=== PATIENT | male | born 1960 | race Hispanic/Latino ===

== ENCOUNTER 2018-07-30 11:38 | Inpatient (IN) | payer MEDICAID ==
--- NOTE | 2018-07-30 11:46 | Emergency Department Report ---
HPI - General Time Seen by Provider: 07/30/18 11:39 - HPI HPI: 58-year-old male presents to the emergency department by EMS from reports with the complaint of altered mental status. This occurred after the patient received his morning medications. However, The patient has been getting his medications over the past few days. The patient has become less responsive and is having difficulty with ambulation and his sat remained in a wheelchair today. There is some questionable left-sided weakness. However the patient does have history of prethe patient is currently a poor historian secondary to his current condition. [facility] TIA and the facility says that they are unsure whether or not it is new weakness as he has only been there for a few days. The patient is currently a poor historian. I was able to obtain some information from the nurse at [facility]. The patient has only been at their facility since last night. Apparently, the patient was standing in line for medication when he started coming altered, complaining of dizziness, and had difficulty standing. He has a past medical history listed of previous TIA, chronic DVT on Lovenox, hypertension and [id number]-[id number]-tacemcxmp diabetic. She says that he became altered around 10 AM. ED Past Medical Hx - Medications Home Medications: Home Medications Medication Instructions Recorded Confirmed Last Taken Type Aspirin [Adult Aspirin] 81 mg PO QDAY 07/30/18 07/30/18 Unknown History Docusate Sodium [Colace] 100 mg PO BID PRN 07/30/18 07/30/18 Unknown History Enoxaparin [Lovenox] 40 mg SUB-Q QDAY 07/30/18 07/30/18 Unknown History FLUoxetine HCL [Prozac] 10 mg PO QAM 07/30/18 07/30/18 Unknown History Gemfibrozil [Lopid] 600 mg PO QAM&QHS 07/30/18 07/30/18 Unknown History Insulin Aspart [Novolog] 0 unit SUB-Q PRN 07/30/18 07/30/18 Unknown History Metformin HCl [Glucophage] 1,000 mg PO BID 07/30/18 07/30/18 Unknown History OLANZapine [Zyprexa] 10 mg PO HS 07/30/18 07/30/18 Unknown History RX: Trazodone HCl 150 mg PO HS 07/30/18 07/30/18 Unknown History glipiZIDE [Glipizide] 5 mg PO QAM 07/30/18 07/30/18 Unknown History ED Review of Systems ROS: Stated complaint: ALTERED MENTAL STATUS Other details as noted in HPI Comment: Unobtainable due to pts medical conditions Physical Exam - Physical Exam Physical Exam: GENERAL: The patient is well-developed well-nourished. HEENT: Normocephalic. Atraumatic. Patient has moist mucous membranes. EYES: Extraocular motions are intact. Pupils are equal and reactive to light bilaterally. NECK: Supple. Trachea is midline. CHEST/LUNGS: Clear to auscultation. There is no respiratory distress noted. HEART/CARDIOVASCULAR: Regular. There is no tachycardia. There is no obvious murmur. ABDOMEN: Abdomen is soft, nontender. Patient has normal bowel sounds. There is no abdominal distention. SKIN: Skin is warm and dry. NEURO: Patient is sleepy but is arousable. Patient follows commands. Withdraws to painful stimuli. No facial asymmetry. There is some left-sided weakness with drift of the left upper and lower extremities. Patient has some confusion. He appears to have some mild ataxia of the left upper extremity. MUSCULOSKELETAL: There is no tenderness or deformity. There is no evidence of acute injury. ED Course - Consultations Consultation #1: I spoke with the telemedicine neurologist insulation worker interior surface, Dr. Acosta, who saw the patient via geothermal operations manager and recommends stat CT angiography of the head and neck but no TPA at this time. 07/30/18 12:36 07/30/18 13:[address] Gutierrez, in the place of Dr. Acosta, once the CT angiography of the head and neck were completed and he took a look at the imaging and did not see any obvious signs of any contusions, stenosis or thrombus. He recommends admission for further stroke workup. ED Medical Decision Making - Lab Data Result diagrams: 07/30/18 11:45 07/30/18 11:45 - EKG Data -: EKG Interpreted by Me EKG shows normal: sinus rhythm, axis, intervals, QRS complexes, ST-T waves Rate: normal - EKG Data When compared to previous EKG there are: previous EKG unavailable Interpretation: normal EKG - Radiology Data Radiology results: report reviewed, image reviewed interpreted by me: Chest x-ray does not show any pneumothorax, pleural effusion, pneumonia or obvious focal consolidation. Abdominal x-ray shows nonspecific nonobstructive bowel gas. CT HEAD WITHOUT CONTRAST: HISTORY: Stroke symptoms. TECHNIQUE: Sequential 2.5mm CT images. COMPARISON: none. FINDINGS: Cerebral Parenchyma: Within normal limits. Cerebellum: Within normal limits. Brainstem: Within normal limits. Ventricles: Normal. Sella: Normal. Extra-axial spaces: Normal. Basal Cisterns: Normal. Intracranial Hemorrhage: None. Midline Shift: None. Calvarium: Normal. Sinuses: Normal. Mastoid Air Cells: Normal. Visualized Orbits: Normal. IMPRESSION: Cranial CT scan within normal limits. EXAM: CT ANGIO HEAD HISTORY: CVA TECHNIQUE: CTA of the head was performed after the administration of intravenous contrast. Coronal and sagittal reconstructions were included. MIPS were included. PRIORS: None. FINDINGS: No evidence of acute intracranial hemorrhage, ischemic infarct, mass, mass effect or midline shift. Mucosal thickening of the maxillary sinuses is likely congestive or inflammatory. The calvarium is intact. The orbits are intact. The mastoid air cells are clear. No evidence of intracranial aneurysm, stenosis, occlusion or dissection. The [place] anatomy is normal. IMPRESSION: Normal CTA of the head. EXAM: CT ANGIO NECK HISTORY: CVA TECHNIQUE: CTA of the neck was performed. Coronal and sagittal reconstructions were included. MIPS were also included. PRIORS: None. FINDINGS: Estimates of vessel stenosis were made using the diameter of the area of stenosis to the ratio of the diameter of the normal caliber vessel. No evidence of cervical vascular aneurysm, dissection, or occlusion. Vessel origins are normal. There is mild calcified atherosclerotic plaque in the proximal aspects of the internal carotid arteries. There is approximately 50 percent stenosis of the proximal aspect of t he right internal carotid artery. No stenosis of the left internal carotid artery is noted. The common carotid, external carotid and vertebral arteries are widely patent. The internal jugular veins are patent. Multilevel degenerative changes of the cervical spine are seen. Prior cervical spine fusion is noted. IMPRESSION: 1. No evidence of cervical vascular aneurysm, dissection or occlusion. 2. Approximately 50 percent stenosis of the proximal aspect of the right internal carotid artery. Calcified atherosclerotic plaque at the proximal left internal carotid artery without vessel stenosis. - Medical Decision Making Patient presents from his psychiatric facility with the complaint of some altered mental status, dizziness and some left-sided weakness. Patient was an NIH stroke scale of 6. There is no obvious last known well time that allegedly the change in mental status occurred around [address] scan of the head without contrast did not show any bleed, shift, mass, ischemia or any other acute process. The telemedicine neurologist was contacted who did not feel that the patient should receive TPA at this time as the patient is currently getting anticoagulation but does recommend CT angiography of the head and neck to be done. CT angiography did not show any signs of any occlusion, thrombus, stenosis or any other acute process. Vital signs stable throughout his ED course. Labs are mostly unremarkable and do not show any etiology of his symptoms. Patient did not have any response to the Narcan given. Patient will be admitted to the hospital for further evaluation and has been accepted for admission by the hospitalist, Dr. Becker. - Differential Diagnosis CVA, TIA, hyperammonemia, psychosis Critical Care Time: Yes Critical care time in (mins) excluding proc time.: 35 Critical care attestation.: If time is entered above; I have spent that time in minutes in the direct care of this critically ill patient, excluding procedure time. Critical care time was spent on this patient during his initial evaluation, multiple re- evaluations, ordering and interpretation of labs and imaging, discussion with the hospitalist and neurologist. Critical Care Time: 35 minutes ED Disposition Clinical Impression: Encephalopathy CVA (cerebral vascular accident) Qualifiers: Precerebral and cerebral artery: unspecified cerebral artery Disposition: OP ADMIT IP TO THIS HOSP Is pt being admited?: Yes Condition: Serious Time of Disposition: 18:40 - Assessment Assessment Interval: Baseline - Level of Consciousness 1a. Level of Consciousness: arousable/minor stimuli - LOC Questions 1b. LOC Questions: answers 1 question correctly - LOC Command 1c. LOC Commands: performs 1 task correctly - Best Gaze 2. Best Gaze: normal - Visual 3. Visual: no visual loss - Facial Palsy 4. Facial Palsy: normal symmetrical movement - Motor Arm 5b. Motor Arm Right: no drift 5a. Motor Arm Left: drift - Motor Leg 6b. Motor Leg Right: no drift 6a. Motor Leg Left: drift - Limb Ataxia 7. Limb Ataxia: present 1 limb - Sensory 8. Sensory: normal - Best Language 9. Best Language: no aphasia - Dysarthria 10. Dysarthria: normal - Extinction and Inattention 11. Extinction/Inattention: no abnormality - Scoring Total Score: 6 Stroke Severity: Moderate Stroke
[2018-07-30] MEDS ORDERED: NARCAN 0.4 MG/1 ML IV ONE (11:51)
[2018-07-30 11:58] LABS: Basophils # (Auto) 0.1 K/mm3 (0.0-0.1); Basophils % (Auto) 1.2 % (0.0-1.8); Eosinophils # (Auto) 0.4 K/mm3 (0.0-0.4); Eosinophils % (Auto) 5.8 % (0.0-4.3); Hemoglobin 14.2 gm/dl (11.8-15.2); Lymphocytes # (Auto) 1.9 K/mm3 (1.2-5.4); Lymphocytes % (Auto) 29.4 % (13.4-35.0); Mean Corpuscular HGB Conc 36 % (32-34); Mean Corpuscular Volume 91 fl (84-94); Monocytes # (Auto) 0.7 K/mm3 (0.0-0.8); Monocytes % (Auto) 10.2 % (0.0-7.3); Platelet Count 266 K/mm3 (140-440); Red Blood Count 4.38 M/mm3 (3.65-5.03); Red Cell Distribution Width 14.4 % (13.2-15.2)
[2018-07-30 12:11] LABS: INR 0.95 (0.87-1.13)
[2018-07-30 12:12] LABS: Partial Thromboplastin Time 42.5 Sec. (24.2-36.6)
[2018-07-30 12:23] LABS: Alanine Aminotransferase 11 units/L (7-56); Albumin 4.8 g/dL (3.9-5); BUN/Creatinine Ratio 21; Blood Urea Nitrogen 17 mg/dL (9-20); Calcium 9.8 mg/dL (8.4-10.2); Hemolysis Index 5
--- NOTE | 2018-07-30 13:14 | XRay Report ---
ABDOMINAL SERIES: History: Abdominal pain. Supine and upright views of the abdomen and frontal view of the chest are submitted. There is gas mixed with moderate stool throughout the colon. There are no dilated loops of bowel or air-fluid levels. There is no free intraperitoneal gas. The lungs are clear. IMPRESSION: Fecal retention.
--- NOTE | 2018-07-30 13:17 | Cat Scan Report ---
CT HEAD WITHOUT CONTRAST: HISTORY: Stroke symptoms. TECHNIQUE: Sequential 2.5mm CT images. COMPARISON: none. FINDINGS: Cerebral Parenchyma: Within normal limits. Cerebellum: Within normal limits. Brainstem: Within normal limits. Ventricles: Normal. Sella: Normal. Extra-axial spaces: Normal. Basal Cisterns: Normal. Intracranial Hemorrhage: None. Midline Shift: None. Calvarium: Normal. Sinuses: Normal. Mastoid Air Cells: Normal. Visualized Orbits: Normal. IMPRESSION: Cranial CT scan within normal limits. These findings were discussed with Dr. Rutherford in the emergency department at 1208 hrs.
[2018-07-30 14:12] LABS: Bilirubin,Urine NEG (Negative); Blood,Urine NEG (Negative); Color,Urine Yellow (Yellow); Protein,Urine <15 mg/dL mg/dL (Negative); RBC,Urine < 1.0 /HPF (0.0-6.0); Urobilinogen,Urine < 2.0 mg/dL (<2.0); WBC,Urine < 1.0 /HPF (0.0-6.0)
--- NOTE | 2018-07-30 14:16 | Cat Scan Report ---
FINAL REPORT EXAM: CT ANGIO HEAD HISTORY: CVA TECHNIQUE: CTA of the head was performed after the administration of intravenous contrast. Coronal a nd sagittal reconstructions were included. MIPS were included. PRIORS: None. FINDINGS: No evidence of acute intracranial hemorrhage, ischemic infarct, mass, mass effect or midline shift. M ucosal thickening of the maxillary sinuses is likely congestive or inflammatory. The calvarium is int act. The orbits are intact. The mastoid air cells are clear. No evidence of intracranial aneurysm, stenosis, occlusion or dissection. The [place] anatomy is normal. IMPRESSION: Normal CTA of the head.
[2018-07-30] MEDS ORDERED: NARCAN 0.4 MG/1 ML ONE ×2 (14:19→14:20)
[2018-07-30 14:20] LABS: Amphetamine Screen,Urine PRESUMPTIVE NEGATIVE; Cannabinoid Screen,Urine PRESUMPTIVE NEGATIVE; Cocaine Screen,Urine PRESUMPTIVE NEGATIVE; Methadone Screen,Urine PRESUMPTIVE NEGATIVE; Opiate Screen,Urine PRESUMPTIVE NEGATIVE
--- NOTE | 2018-07-30 14:28 | Cat Scan Report ---
FINAL REPORT EXAM: CT ANGIO NECK HISTORY: CVA TECHNIQUE: CTA of the neck was performed. Coronal and sagittal reconstructions were included. MIPS w ere also included. PRIORS: None. FINDINGS: Estimates of vessel stenosis were made using the diameter of the area of stenosis to the ratio of the diameter of the normal caliber vessel. No evidence of cervical vascular aneurysm, dissection, or occlusion. Vessel origins are normal. There is mild calcified atherosclerotic plaque in the proximal aspects of the internal carotid arteries. T here is approximately 50 percent stenosis of the proximal aspect of the right internal carotid artery . No stenosis of the left internal carotid artery is noted. The common carotid, external carotid and vertebral arteries are widely patent. The internal jugular veins are patent. Multilevel degenerative changes of the cervical spine are seen. Prior cervical spine fusion is noted. IMPRESSION: 1. No evidence of cervical vascular aneurysm, dissection or occlusion. 2. Approximately 50 percent stenosis of the proximal aspect of the right internal carotid artery. Vasu cified atherosclerotic plaque at the proximal left internal carotid artery without vessel stenosis.
--- NOTE | 2018-07-30 14:35 | History and Physical Report ---
History of Present Illness Chief complaint: confused History of present illness: 58 YO Male inpatient at [facility] with HTN, DM, PTSD, Depression, ETOH Dependence, Cocaine Dependence, DVT on therapeutic anticoagulation, CVA presents to ED for evaluation. Pt is confused/lethargic and unable to provide history. Pt history taken from ED staff, and [facility] staff. As per staff, the patient has experienced increased confusion over the past 2 days. Pt was found to be less responsive today, unable to ambulate, with left sided hemiparesis. EMS notified, and upon arrival the patient was found to have a focal deficit. Code stroke called. Pt transported to [facility] for further care and evaluation. Pt seen and evaluated in ED and found to have evidence of CVA, and Encephalopathy. Teleneurology consulted in ED. Pt outside therapeutic window for TPA. Pt admitted to telemetry, and initiated on CVA protocol. No further history obtainable. Past History Past Medical History: diabetes, DVT, hypertension, stroke Past Surgical History: No surgical history, Other (reviewed) Social history: single. denies: smoking, alcohol abuse, prescription drug abuse Family history: no significant family history (reviewed) Medications and Allergies Allergies Allergy/AdvReac Type Severity Reaction Status Date / Time No Known Allergies Allergy Unverified 07/30/18 13:19 Review of Systems ROS unobtainable: due to mental status Exam - Constitutional Vitals: Temp Pulse Resp BP Pulse Ox 98.2 F 81 18 149/85 99 07/30/18 12:40 07/30/18 12:40 07/30/18 12:40 07/30/18 12:40 07/30/18 12:40 General appearance: Present: mild distress, cachectic, disheveled - EENT Eyes: Present: PERRL, miosis - Neck Neck: Present: supple, normal ROM - Respiratory Respiratory effort: normal Respiratory: bilateral: CTA - Cardiovascular Heart Sounds: Present: S1 & S2. Absent: rub, click - Extremities Extremities: pulses symmetrical, No edema Peripheral Pulses: within normal limits - Abdominal General gastrointestinal: Present: soft, non-tender, non-distended, normal bowel sounds Male genitourinary: Present: normal - Integumentary Integumentary: Present: clear, warm, dry - Musculoskeletal Musculoskeletal: generalized weakness - Psychiatric Psychiatric: no appropriate mood/affect, no intact judgment & insight, no memory intact - Neurologic Neurologic: CNII-XII intact, moves all extremities, no gait normal Results - Labs CBC & Chem 7: 07/30/18 11:45 07/30/18 11:45 Labs: Abnormal lab results 07/30/18 07/30/18 07/30/18 Range/Units 11:45 11:45 11:45 MCH 33 H (28-32) pg MCHC 36 H (32-34) % [place] % (Auto) 10.2 H (0.0-7.3) % Eos % (Auto) 5.8 H (0.0-4.3) % APTT 42.5 H (24.2-36.6) Sec. Glucose 136 H (75-100) mg/dL POC Glucose (70-105) 07/30/18 Range/Units 11:46 MCH (28-32) pg MCHC (32-34) % [place] % (Auto) (0.0-7.3) % Eos % (Auto) (0.0-4.3) % APTT (24.2-36.6) Sec. Glucose (75-100) mg/dL POC Glucose 157 H (70-105) Assessment and Plan - Patient Problems (1) CVA (cerebral vascular accident) Current Visit: Yes Status: Acute Qualifiers: Precerebral and cerebral artery: posterior cerebral artery Plan to address problem: Admit to telemetry, CT Head, MRI Brain, MRA Brain, Echo, Carotid Doppler, Echo, EEG, PT/OT/ Speech therapy, antiplatelet therapy, lipid panel, neuro checks (2) Encephalopathy Current Visit: Yes Status: Acute Plan to address problem: thyroid panel, neuro check, UDS, CT Head, (3) Diabetes Current Visit: Yes Status: Acute Plan to address problem: ADA diet, insulin, accu check (4) HTN (hypertension) Current Visit: Yes Status: Acute Qualifiers: Hypertension type: essential hypertension Qualified Code(s): I10 - Essential (primary) hypertension Plan to address problem: monitor bp q shift, continue medical management (5) DVT prophylaxis Current Visit: Yes Status: Acute Plan to address problem: SCD to BLE while in bed (6) PTSD (post-traumatic stress disorder) Current Visit: Yes Status: Acute Plan to address problem: Psychiatry consulted. (7) Depression Current Visit: Yes Status: Acute Plan to address problem: psychiatry consulted, (8) Substance abuse Current Visit: Yes Status: Acute Plan to address problem: thiamine, folic acid, multivitamin, ciwa protocol
[2018-07-30] MEDS ORDERED: SODIUM CHLORIDE FLUSH SYRINGE 10 ML IV PRN (14:39)
[2018-07-30] MEDS ORDERED: REGLAN PO PRN (14:39)
[2018-07-30] MEDS ORDERED: ZOFRAN IV PRN (14:39)
[2018-07-30] MEDS ORDERED: PROVENTIL IH PRN (14:39)
[2018-07-30] MEDS ORDERED: PHENERGAN PR PRN (14:39)
[2018-07-30] MEDS ORDERED: MILK OF MAGNESIA PO PRN (14:39)
[2018-07-30 14:42] LABS: Benzodiazepines Screen,Urine PRESUMPTIVE POSITIVE
[2018-07-30] MEDS ORDERED: DULCOLAX PR PRN (15:39)
[2018-07-30] MEDS ORDERED: TYLENOL ONE (16:43)
[2018-07-30] MEDS ORDERED: VITAMIN B-1 100 MG, FOLVITE 1 MG, INFUVITE 10 ML in NACL 0.9% 1000 ML 1,000 ML IV ONE (17:05)
[2018-07-30] MEDS: LOVENOX SUB-Q SCH (21:23)
--- NOTE | 2018-07-31 01:15 | Vascular Lab Report ---
FINAL REPORT EXAM: VL CAROTID DUPLEX BILAT HISTORY: stroke TECHNIQUE: Real-time carotid ultrasound with 2D kim scale color Doppler and spectral waveform a nalysis was performed. PRIORS: CT head/neck dated 07/30/2018. FINDINGS: FINDINGS: Real-time carotid ultrasound shows moderate right and mild left intimal thickening and calc ified plaque within the distal common and proximal internal carotid arteries. No significant stenosis is detected. The external carotid and vertebral arteries are patent bilaterally with appropriate di rection of flow. Right: Cm/sec Proximal Peak Syst Parth (CCA): 95 Proximal Peak Diast Parth (CCA): 12 Distal Peak Syst Parth (CCA): 83 Distal Peak Diast Parth (CCA): 12 Proximal Peak Syst Parth (ICA): 96 Proximal Peak Diast Parth (ICA): 30 Mid Peak Syst Parth (ICA): 80 Mid Peak Diast Parth (ICA): 27 Distal Peak Syst Parth (ICA): 101 Distal Peak Diast Parth (ICA): 37 Peak Syst Parth (ECA): 77 Peak Diast Parth (ECA): 6 Vertebral Peak Syst Parth: 49 Vertebral Peak Diast Parth: 10 Left: Cm/sec Proximal Peak Syst Parth (CCA): 105 Proximal Peak Diast Parth (CCA): 18 Distal Peak Syst Parth (CCA): 93 Distal Peak Diast Parth (CCA): 22 Proximal Peak Syst Parth (ICA): 89 Proximal Peak Diast Parth (ICA): 32 Mid Peak Syst Parth (ICA): 86 Mid Peak Diast Parth (ICA): 35 Distal Peak Syst Parth (ICA): 77 Distal Peak Diast Parth (ICA): 28 Peak Syst Parth (ECA): 79 Peak Diast Parth (ECA): 8 Vertebral Peak Syst Parth: 46 Vertebral Peak Diast Parth: 16 IMPRESSION: Moderate right and mild left calcified plaque within the distal common and proximal internal carotid arteries. No stenosis <50% present based on flow velocities.
[2018-07-31] MEDS: LOVENOX SUB-Q SCH ×2 (10:01→22:59)
--- NOTE | 2018-07-31 10:09 | Progress Note ---
Assessment and Plan Assessment and plan: Acute CVA. CT scan of the head is negative. Follow-up MRI/MRA brain, echocardiogram and carotid Dopplers. PT/OT evaluation. Acute encephalopathy. Neurology consultation pending. Etiology may be seco ndary to above. Diabetes mellitus type II. Continue Accu-Cheks and sliding scale as. Consistent carbohydrate diet. Hypertension. Continue antihypertensive medications. PTSD. Psychiatric consultation pending. Depression. As above. Substance abuse/cocaine dependence. History Interval history: No new issues overnight. Hospitalist Physical - Constitutional Vitals: Temp Pulse Resp BP Pulse Ox 97.6 F 64 22 128/77 95 07/31/18 09:56 07/31/18 09:56 07/31/18 09:56 07/31/18 09:56 07/31/18 09:56 General appearance: Present: no acute distress, cachectic, disheveled Results - Labs CBC & Chem 7: 07/30/18 11:45 07/30/18 11:45 Labs: Laboratory Last Values WBC 6.4 K/mm3 (4.5-11.0) 07/30/18 11:45 RBC 4.38 M/mm3 (3.65-5.03) 07/30/18 11:45 Hgb 14.2 gm/dl (11.8-15.2) 07/30/18 11:45 Hct 40.0 % (35.5-45.6) 07/30/18 11:45 MCV 91 fl (84-94) 07/30/18 11:45 MCH 33 pg (28-32) H 07/30/18 11:45 MCHC 36 % (32-34) H 07/30/18 11:45 RDW 14.4 % (13.2-15.2) 07/30/18 11:45 Plt Count 266 K/mm3 (140-440) 07/30/18 11:45 Lymph % (Auto) 29.4 % (13.4-35.0) 07/30/18 11:45 [place] % (Auto) 10.2 % (0.0-7.3) H 07/30/18 11:45 Eos % (Auto) 5.8 % (0.0-4.3) H 07/30/18 11:45 Baso % (Auto) 1.2 % (0.0-1.8) 07/30/18 11:45 Lymph # 1.9 K/mm3 (1.2-5.4) 07/30/18 11:45 [place] # 0.7 K/mm3 (0.0-0.8) 07/30/18 11:45 Eos # 0.4 K/mm3 (0.0-0.4) 07/30/18 11:45 Baso # 0.1 K/mm3 (0.0-0.1) 07/30/18 11:45 Seg Neutrophils % 53.4 % (40.0-70.0) 07/30/18 11:45 Seg Neutrophils # 3.4 K/mm3 (1.8-7.7) 07/30/18 11:45 PT 13.1 Sec. (12.2-14.9) 07/30/18 11:45 INR 0.95 (0.87-1.13) 07/30/18 11:45 APTT 42.5 Sec. (24.2-36.6) H 07/30/18 11:45 Sodium 142 mmol/L (137-145) 07/30/18 11:45 Potassium 4.1 mmol/L (3.6-5.0) 07/30/18 11:45 Chloride 101.8 mmol/L (98-107) 07/30/18 11:45 Carbon Dioxide 25 mmol/L (22-30) 07/30/18 11:45 Anion Gap 19 mmol/L 07/30/18 11:45 BUN 17 mg/dL (9-20) 07/30/18 11:45 Creatinine 0.8 mg/dL (0.8-1.5) 07/30/18 11:45 Estimated GFR > 60 ml/min 07/30/18 11:45 BUN/Creatinine Ratio 21 % 07/30/18 11:45 Glucose 136 mg/dL (75-100) H 07/30/18 11:45 POC Glucose 87 (70-105) 07/31/18 05:27 Lactic Acid 1.60 mmol/L (0.7-2.0) 07/30/18 11:45 Calcium 9.8 mg/dL (8.4-10.2) 07/30/18 11:45 Total Bilirubin < 0.20 mg/dL (0.1-1.2) 07/30/18 11:45 AST 17 units/L (5-40) 07/30/18 11:45 ALT 11 units/L (7-56) 07/30/18 11:45 Alkaline Phosphatase 87 units/L (35-129) 07/30/18 11:45 Ammonia 33.0 umol/L (25-60) 07/30/18 11:45 Troponin T < 0.010 ng/mL (0.00-0.029) 07/30/18 11:45 Total Protein 7.8 g/dL (6.3-8.2) 07/30/18 11:45 Albumin 4.8 g/dL (3.9-5) 07/30/18 11:45 Albumin/Globulin Ratio 1.6 % 07/30/18 11:45 TSH 2.230 mlU/mL (0.270-4.200) 07/30/18 11:45 Urine Color Yellow (Yellow) 07/30/18 13:19 Urine Turbidity Clear (Clear) 07/30/18 13:19 Urine pH 6.0 (5.0-7.0) 07/30/18 13:19 Ur Specific [place] 1.006 (1.003-1.030) 07/30/18 13:19 Urine Protein <15 mg/dl mg/dL (Negative) 07/30/18 13:19 Urine Glucose (UA) 50 mg/dL (Negative) 07/30/18 13:19 Urine Ketones Neg mg/dL (Negative) 07/30/18 13:19 Urine Blood Neg (Negative) 07/30/18 13:19 Urine Nitrite Neg (Negative) 07/30/18 13:19 Urine Bilirubin Neg (Negative) 07/30/18 13:19 Urine Urobilinogen < 2.0 mg/dL (<2.0) 07/30/18 13:19 Ur Leukocyte Esterase Neg (Negative) 07/30/18 13:19 Urine WBC (Auto) < 1.0 /HPF (0.0-6.0) 07/30/18 13:19 Urine RBC (Auto) < 1.0 /HPF (0.0-6.0) 07/30/18 13:19 U Epithel Cells (Auto) < 1.0 /HPF (0-13.0) 07/30/18 13:19 Urine Opiates Screen Presumptive negative 07/30/18 13:19 Urine Methadone Screen Presumptive negative 07/30/18 13:19 Ur Barbiturates Screen Presumptive negative 07/30/18 13:19 Ur Phencyclidine Scrn Presumptive negative 07/30/18 13:19 Ur Amphetamines Screen Presumptive negative 07/30/18 13:19 U Benzodiazepines Scrn Presumptive positive 07/30/18 13:19 Urine Cocaine Screen Presumptive negative 07/30/18 13:19 U Marijuana (THC) Screen Presumptive negative 07/30/18 13:19 Drugs of Abuse Note Disclamer 07/30/18 13:19 Plasma/Serum Alcohol < 0.01 % (0-0.07) 07/30/18 11:45 Blood Type O POSITIVE 07/30/18 12:11 Antibody Screen Negative 07/30/18 12:11
[2018-07-31] MEDS: ATIVAN IV PRN ×2 (12:39→20:04)
--- NOTE | 2018-07-31 13:26 | Magnetic Resonance Report ---
MRI BRAIN WITHOUT CONTRAST: 07/31/18 CLINICAL: Stroke. TECHNIQUE: Axial diffusion, T1, T2, gradient echo T2*, coronal and axial FLAIR and sagittal T1 sequences on a 1.5 Diamond magnet. FINDINGS: The ventricles and sulci are slightly large for age. No restricted diffusion. No mass or mass effect. No hemorrhage, edema or extra-axial collection. No chronic microbleeds on the gradient echo sequence. Normal pituitary and optic chiasm. The brainstem and cerebellum are normal. Intact vascular flow voids. Normal sinuses. The orbits, and soft tissues are normal. Normal calvarium and skull base. IMPRESSION: 1. No evidence of acute/subacute infarct or hemorrhage. 2. Mild global cortical atrophy.
--- NOTE | 2018-07-31 13:27 | Magnetic Resonance Report ---
MRA HEAD WITHOUT CONTRAST: 07/30/18 14:39:00 CLINICAL: Stroke. TECHNIQUE: Axial 3-D [id number] MR angiography of the [place] with review of axial source images. FINDINGS: Intact [place] with no aneurysm, stenosis or occlusion. Symmetric blood flow in the anterior, middle and posterior cerebral arteries. Normal basilar and vertebral arteries. IMPRESSION: Normal study.
--- NOTE | 2018-07-31 14:56 | Consultation ---
History of Present Illness - Reason for Consult Consult date: 07/31/18 Reason for consult: Initial Psychiatric Evaluation - Chief Complaint Chief complaint: " I don't know" - History of Present Psychiatric Illness Patient 58-year-old male that presents to the emergency department by EMS from reports with the complaint of altered mental status. This occurred after the patient received his morning medications. However, The patient has been getting his medications over the past few days. Psychiatry was consulted for a PPHx of MDD and PTSD. Today patient is lethargic/sedated during the assessment. He is unable to respond to provider's questions. Patient immediately falls asleep after a questioned has been asked. Thought content is impoverished. Per sitter patient received Ativan PRN before MRI. Prior to receiving Ativan patient was more alert and oriented. Current Psychiatric Medications: Unable to assess. Past Psychiatric History: Unable to assess. Past Psychiatric Medication Trials: Unable to assess. Trauma/Abuse History: Unable to assess. Drug/Alcohol Abuse History: Unable to assess. Social History: Unable to assess. Family History of Psychiatric Illness/Substance Abuse: Unable to assess. Medications and Allergies Allergies Allergy/AdvReac Type Severity Reaction Status Date / Time Iodinated Contrast- Oral and Allergy Anaphylaxis Verified 07/31/18 04:19 IV Dye Penicillins Allergy Unknown Verified 07/31/18 04:19 tramadol Allergy Itching Verified 07/31/18 04:19 Home Medications Medication Instructions Recorded Confirmed Last Taken Type Aspirin [Adult Aspirin] 81 mg PO QDAY 07/30/18 07/30/18 Unknown History Docusate Sodium [Colace] 100 mg PO BID PRN 07/30/18 07/30/18 Unknown History Enoxaparin [Lovenox] 40 mg SUB-Q QDAY 07/30/18 07/30/18 Unknown History FLUoxetine HCL [Prozac] 10 mg PO QAM 07/30/18 07/30/18 Unknown History Gemfibrozil [Lopid] 600 mg PO QAM&QHS 07/30/18 07/30/18 Unknown History Insulin Aspart [Novolog] 0 unit SUB-Q PRN 07/30/18 07/30/18 Unknown History Metformin HCl [Glucophage] 1,000 mg PO BID 07/30/18 07/30/18 Unknown History OLANZapine [Zyprexa] 10 mg PO HS 07/30/18 07/30/18 Unknown History Trazodone HCl 150 mg PO HS 07/30/18 07/30/18 Unknown History glipiZIDE [Glipizide] 5 mg PO QAM 07/30/18 07/30/18 Unknown History Active Meds: Active Medications Acetaminophen (Tylenol) 650 mg PO Q4H PRN PRN Reason: Pain, Mild (1-3) Albuterol (Proventil) 2.5 mg IH Q3HRT PRN PRN Reason: Shortness Of Breath Atorvastatin Calcium (Lipitor) 40 mg PO QHS [facility] Last Admin: 07/30/18 21:23 Dose: Not Given Documented by: Bisacodyl (Dulcolax) 10 mg NM QDAY PRN PRN Reason: Constipation Enoxaparin Sodium (Lovenox) 70 mg 1 mg/kg (70 mg) SUB-Q Q12HR [facility] Last Admin: 07/31/18 10:01 Dose: 70 mg Documented by: Lorazepam (Ativan) 2 mg IV Q1HR PRN PRN Reason: CIWA-Ar 8-15 Last Admin: 07/31/18 12:39 Dose: 2 mg Documented by: Magnesium Hydroxide (Milk Of Magnesia) 30 ml PO Q4H PRN PRN Reason: Constipation Metoclopramide HCl (Reglan) 10 mg PO Q6H PRN PRN Reason: Nausea And Vomiting Ondansetron HCl (Zofran) 4 mg IV Q8H PRN PRN Reason: Nausea And Vomiting Promethazine HCl (Phenergan) 25 mg NM Q6H PRN PRN Reason: Nausea And Vomiting Sodium Chloride (Sodium Chloride Flush Syringe 10 Ml) 10 ml IV PRN PRN PRN Reason: LINE FLUSH Mental Status Exam - Vital signs Last Vital Signs Temp 97.6 F 07/31/18 09:56 Pulse 75 07/31/18 10:00 Resp 22 07/31/18 09:56 BP 128/77 07/31/18 09:56 Pulse Ox 95 07/31/18 09:56 - Exam Narrative exam: Mental Status Exam: Appearance: calm, cooperative Behavior: poor eye contact Speech: delayed; difficult to understand Mood: "I feel okay" Affect: constricted Thought Process: confused Thought Content: denies SI/HI's and AVH's Motor Activity: laying in bed; unsteady gait Cognition: lethargic/ sedated Insight: unable to assess. Judgment: unable to Assess. Results Result Diagrams: 07/30/18 11:45 07/30/18 11:45 All other labs normal. Assessment and Plan Assessment and plan: Impression: PPHx of PTSD and MDD. Today patient is lethargic/sedated. Provider unable to fully assess due to patient's mental status. Appears somewhat confused. Recommendation/Plan: 1. Will reevaluate in 24 hours. 2. Gain collateral to determine proper disposition. Recommend Delirium precautions below: 1. Frequently reorient patient and involve him/her in their care (simple explanations of procedures, tests, medications). 2. Lights on and shades open during daytime hours. 3. Write date and goals of care in a visible place. 4. Try to avoid unnecessary interruptions to sleep during nighttime hours. 5. Obtain glasses, hearing aids from home if patient uses these at baseline. 6. Avoid medications that may exacerbate delirium (especially narcotics, benzodiazepines, barbiturates, ambien, lunesta, and medications with excessive anticholinergic properties). Disposition: Will restart medication for psychiatry once collateral has been gained and patient is less confused/more oriented. Will staff with Dr. Libia Dove.
--- NOTE | 2018-07-31 16:41 | Consultation ---
History of Present Illness Consult date: 07/31/18 Requesting physician: RUBIN WILLIS Reason for Consult: altered mental status Chief complaint: altered mental status, weakness and paresthesias and pain left arm/hand History of present illness: This 58-year-old right-handed white male is a somewhat poor historian but states it he noted 3 days ago numbness and pain in the left index, middle and ring fingers and associated weakness of the left arm and slowing of speech but no problems with his leg. He states he takes 81 mg aspirin but no blood pressure medications. CT angio of neck just showed 50% stenosis proximally in the right internal carotid artery but normal on the left, CT angiogram head was normal. MRI of the head is negative on diffusion and GRE but shows some periventricular microvascular disease peripherally and a thin layer of microvascular disease periventricularly on FLAIR and some mild cerebral atrophy. MRA of the head is normal. He states his blood pressures at home are in the 120s over 80s. 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 PTSD.) Past Surgical History: Other (reviewed. 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 denies: alcohol abuse (heavy alcohol in the past but stopped 4 years ago), prescription drug abuse, IV drug use (cocaine in the 1970s as well as acid and marijuana never IVDA.) Family history: no significant family history (reviewed), hypertension (sister and paternal grandparents), other (negative for epilepsy). denies: stroke Medications and Allergies Allergies Allergy/AdvReac Type Severity Reaction Status Date / Time Iodinated Contrast- Oral and Allergy Anaphylaxis Verified 07/31/18 04:19 IV Dye Penicillins Allergy Unknown Verified 07/31/18 04:19 tramadol Allergy Itching Verified 07/31/18 04:19 Home Medications Medication Instructions Recorded Confirmed Last Taken Type Aspirin [Adult Aspirin] 81 mg PO QDAY 07/30/18 07/30/18 Unknown History Docusate Sodium [Colace] 100 mg PO BID PRN 07/30/18 07/30/18 Unknown History Enoxaparin [Lovenox] 40 mg SUB-Q QDAY 07/30/18 07/30/18 Unknown History FLUoxetine HCL [Prozac] 10 mg PO QAM 07/30/18 07/30/18 Unknown History Gemfibrozil [Lopid] 600 mg PO QAM&QHS 07/30/18 07/30/18 Unknown History Insulin Aspart [Novolog] 0 unit SUB-Q PRN 07/30/18 07/30/18 Unknown History Metformin HCl [Glucophage] 1,000 mg PO BID 07/30/18 07/30/18 Unknown History OLANZapine [Zyprexa] 10 mg PO HS 07/30/18 07/30/18 Unknown History Trazodone HCl 150 mg PO HS 07/30/18 07/30/18 Unknown History glipiZIDE [Glipizide] 5 mg PO QAM 07/30/18 07/30/18 Unknown History Active Meds: Active Medications Acetaminophen (Tylenol) 650 mg PO Q4H PRN PRN Reason: Pain, Mild (1-3) Albuterol (Proventil) 2.5 mg IH Q3HRT PRN PRN Reason: Shortness Of Breath Atorvastatin Calcium (Lipitor) 40 mg PO QHS [facility] Last Admin: 07/30/18 21:23 Dose: Not Given Documented by: Bisacodyl (Dulcolax) 10 mg AL QDAY PRN PRN Reason: Constipation Enoxaparin Sodium (Lovenox) 70 mg 1 mg/kg (70 mg) SUB-Q Q12HR [facility] Last Admin: 07/31/18 10:01 Dose: 70 mg Documented by: Lorazepam (Ativan) 2 mg IV Q1HR PRN PRN Reason: CIWA-Ar 8-15 Last Admin: 07/31/18 12:39 Dose: 2 mg Documented by: Magnesium Hydroxide (Milk Of Magnesia) 30 ml PO Q4H PRN PRN Reason: Constipation Metoclopramide HCl (Reglan) 10 mg PO Q6H PRN PRN Reason: Nausea And Vomiting Ondansetron HCl (Zofran) 4 mg IV Q8H PRN PRN Reason: Nausea And Vomiting Promethazine HCl (Phenergan) 25 mg AL Q6H PRN PRN Reason: Nausea And Vomiting Sodium Chloride (Sodium Chloride Flush Syringe 10 Ml) 10 ml IV PRN PRN PRN Reason: LINE FLUSH Review of Systems All systems: negative (headache at temples with nausea and photophonophobia for 5-6 years, has had a headache for 3-4 days now, usually 2 times a week, takes Tylenol since Aleve and ibuprofen do not work. Some lightheadedness at times with bending over and wobbly gait. No snoring or pauses or, cannot drive due to cataracts. Sometimes difficulty falling asleep. He states he has restless legs and that he hits his sometimes in his sleep. Some trouble with short- term memory for a few years. Fingertips bilaterally have been numb for 2 weeks but the first episode was a month or 2 ago.) Physical Examination - Vital Signs Vital Signs: Vital Signs Resp 13 07/30/18 11:45 - Physical Exam Narrative exam: General Appearance: well developed well nourished (per BMI) early 60s white male white male in [facility]. HEENT: atraumatic, normocephalic; no bruits, 2+ Emile without soreness or induration or enlargement, sclerae nonicteric. Oropharynx pink and moist. No TMJ click or sinus soreness to pressure or percussion but has some left TMJ soreness to palpation and some soreness of the left supraorbital nerve area. Neck: supple, no bruits. Heart: no murmur or extra sounds. Extremities: no clubbing, cyanosis or edema but scabbed skin lesions bilaterally in the lower legs. 2+ dorsalis pedis pulses bilaterally. Neurologic Exam: Mental Status: Awake, alert, oriented X to June, speech is clear, names pen and tip of pen, and abstracts well. Names President but not Silk Trimmer, serial 7's with several errors and gives 5+7 = T has some right- left confusion, gets 0 of 3 objects at 3 minutes though he gets one item after first letter prompt, spells WORLD backwards DLOROW (putting in an extra letter). Cranial Nerves: lópez full, no papilledema, SVPs present, PERRLA, EOMs full without nystagmus or diplopia, facial sensation decreased to pinprick on the right V1-V3 but decreased light touch in the left V1 and V3 territories, no facial weakness, Jasmine is to the right but AC>BC X 2, palate rises symmetrically to phonation and gags are positive, shoulder shrug is 5 X 2 by painful bilaterally, tongue protrudes midline. Cerebellar: finger to nose and heel to patricio OR tandem are normal. Sensory: intact to light touch but it elicits tingling in the left arm and leg, pinprick decreased on the right side, decreased vibrations left side. Double simultaneous stimulation is intact. Special Tests: shock locally at right>>left carpal tunnels. Motor Exam Upper Extremities: moderate left drift without pronation but has asterixis-like jerks trying to hold his arms above the bed though without any of the usual "flap" at the wrists when held in dorsiflexion, Corey slower on the left. Ad[employer] Clerks Supervisor are 5 right and 4- left, tone is normal. No atrophy or fasciculations are noted visually. Motor Exam Lower Extremities: no leg lag, iliopsoas and quadriceps and anterior tibials and gastrocnemius are 5 X 2. Corey intact. Tone is normal. No atrophy or fasciculations are noted visually. Reflexes: Palmomental and jaw jerk are negative but snout is slightly positive. Triceps are trace, biceps are trace right and 1 left, and brachioradialis are trace bilaterally. Terrence's is negative bilaterally. Knee jerks are trace right and 1+ left and ankle jerks are 0 bilaterally even with reinforcement and without clonus. Toes are downgoing bilaterally to Babinski testing. - Assessment Assessment Interval: Baseline - Level of Consciousness 1a. Level of Consciousness: arousable/minor stimuli - LOC Questions 1b. LOC Questions: answers 1 question correctly - LOC Command 1c. LOC Commands: performs 1 task correctly - Best Gaze 2. Best Gaze: normal - Visual 3. Visual: no visual loss - Facial Palsy 4. Facial Palsy: normal symmetrical movement - Motor Arm 5b. Motor Arm Right: no drift - Motor Leg 6a. Motor Leg Left: drift - Limb Ataxia 7. Limb Ataxia: present 1 limb - Sensory 8. Sensory: normal - Best Language 9. Best Language: no aphasia - Dysarthria 10. Dysarthria: normal - Extinction and Inattention 11. Extinction/Inattention: no abnormality Results - Laboratory Findings CBC and BMP: 07/30/18 11:45 07/30/18 11:45 Abnormal Lab Findings: Abnormal Labs 07/30/18 07/30/18 07/30/18 11:45 11:45 11:45 MCH 33 H MCHC 36 H [place] % (Auto) 10.2 H Eos % (Auto) 5.8 H APTT 42.5 H Glucose 136 H POC Glucose 07/30/18 11:46 MCH MCHC [place] % (Auto) Eos % (Auto) APTT Glucose POC Glucose 157 H Assessment and Plan Impression: 1. Lacunar strokes 2. Dysphagia 3. Dysarthria 4. Memory loss 5. Restless legs syndrome (RLS) 6. REM behavioral sleep disorder (RBSD) 7. Common migraine, intractable 8. Orthostatic dizziness by history Plan: 1. Suggest teaching calf tensing maneuvers for orthostasis via PT. 2. Melatonin for RBSD as outpatient, starting 3 mg ONE HOUR before sleep and building to as much as 15 mg. Can sometimes worsen RLS. 3. Checking iron panel for RLS, aim to get ferritin to 60 or above. 4. Unlikely to be GBS with domingo minimal weakness and sensory change and dysarthria. 5. Formal speech/swallow evaluation to be done (failed swallow screen). 6. Will order repeat brain MRI for Sunday, since could have brainstem stroke that would be in the 6% false negative MRI category on initial scan. If negative, may need spine MRIs. 60 min spent including extensive history and review of hundreds of MRI images. Thank you for and interesting consultation on this unfortunate early 60s man. Will sign off, call for any unusual second MRI or lab results.
[2018-07-31 18:21] LABS: Chol/HDL Ratio 6.45 %
--- NOTE | 2018-07-31 19:52 | Electroencephalogram Report ---
Electroencephalogram EEG Date of exam: 07/31/18 Description: EEG preliminary findings: This 21 minute EEG using 19 channels including one EKG channel shows 7-8 Hz alpha activity in the posterior leads and some anterior beta activity. With brief sleep and drowsiness there are sleep spindles and K complexes. No epileptiform activity was seen. Interpretation: EEG preliminary reading: Mildly abnormal waking and brief sleep EEG due to mild slowing of the background. This EEG does not exclude epilepsy of partial onset. Up to 4 EEGs over several months may be needed to capture interictal epileptiform activity.
[2018-07-31] MEDS: TYLENOL PO PRN (20:02)
[2018-08-01] MEDS ORDERED: HALDOL IV PRN (02:32)
[2018-08-01] MEDS ORDERED: NACL 0.9% 1000 ML 1,000 ML IV ONE (02:35)
[2018-08-01] MEDS: TYLENOL PO PRN (05:23)
[2018-08-01] MEDS: 1: FOLVITE 1 MG, INFUVITE 10 ML, VITAMIN B-1 100 MG in NACL 0.9% 1000 ML 988.8 ML 2: NA IV SCH ×2 (05:28→21:05)
--- NOTE | 2018-08-01 09:48 | Fluoroscopy Report ---
MODIFIED BARIUM SWALLOW History: dysphagia. Findings: Video radiography was provided by the radiologist for speech therapy to assess the swallowing mechanism. 1 fluoroscopic image was captured. Impression: Successful modified barium swallow.
--- NOTE | 2018-08-01 11:41 | Progress Note ---
Assessment and Plan Assessment and plan: Acute lacunar CVA. CT scan of the head is negative. CT angio of neck just showed 50% stenosis proximally in the right internal carotid artery but normal on the left, CT angiogram head was normal. MRI of the head is negative on diffusion and GRE but shows some periventricular microvascular disease pe ripherally and a thin layer of microvascular disease periventricularly on FLAIR and some mild cerebral atrophy. MRA of the head is normal. PT/OT. Neurology following and recommends repeat brain MRI for Sunday, since could have brainstem stroke that would be in the 6% false negative MRI category on initial scan. If negative, may need spine MRIs. Acute encephalopathy. Neurology consultation pending. Etiology may be secondary to above. Oropharyngeal dysphagia. Speech therapy perform modified barium swallow that showed no signs of aspiration. Continue dysphagia/mechanical soft diet. Diabetes mellitus type II. Continue Accu-Cheks and sliding scale as. Consistent carbohydrate diet. Restless leg syndrome. Per neurology Common Migraine, intractable. Per Neurology. Hypertension. Continue antihypertensive medications. PTSD. Psychiatric consultation pending. Depression. As above. Substance abuse/cocaine dependence. History Interval history: No new issues overnight. Hospitalist Physical - Constitutional Vitals: Temp Pulse Resp BP Pulse Ox 97.8 F 66 18 120/74 95 08/01/18 08:44 08/01/18 08:44 08/01/18 08:44 08/01/18 08:44 08/01/18 08:44 General appearance: Present: no acute distress, cachectic, disheveled - EENT Eyes: Present: PERRL, EOM intact ENT: hearing intact, clear oral mucosa, dentition normal - Neck Neck: Present: supple, normal ROM - Respiratory Respiratory effort: normal Respiratory: bilateral: CTA - Cardiovascular Rhythm: regular Heart Sounds: Present: S1 & S2. Absent: gallop, rub - Extremities Extremities: no ischemia, No edema, Full ROM - Abdominal General gastrointestinal: soft, non-tender, non-distended, normal bowel sounds - Integumentary Integumentary: Present: clear, warm, dry - Neurologic Neurologic: CNII-XII intact, moves all extremities Results - Labs CBC & Chem 7: 07/30/18 11:45 07/30/18 11:45 Labs: Laboratory Last Values WBC 6.4 K/mm3 (4.5-11.0) 07/30/18 11:45 RBC 4.38 M/mm3 (3.65-5.03) 07/30/18 11:45 Hgb 14.2 gm/dl (11.8-15.2) 07/30/18 11:45 Hct 40.0 % (35.5-45.6) 07/30/18 11:45 MCV 91 fl (84-94) 07/30/18 11:45 MCH 33 pg (28-32) H 07/30/18 11:45 MCHC 36 % (32-34) H 07/30/18 11:45 RDW 14.4 % (13.2-15.2) 07/30/18 11:45 Plt Count 266 K/mm3 (140-440) 07/30/18 11:45 Lymph % (Auto) 29.4 % (13.4-35.0) 07/30/18 11:45 [place] % (Auto) 10.2 % (0.0-7.3) H 07/30/18 11:45 Eos % (Auto) 5.8 % (0.0-4.3) H 07/30/18 11:45 Baso % (Auto) 1.2 % (0.0-1.8) 07/30/18 11:45 Lymph # 1.9 K/mm3 (1.2-5.4) 07/30/18 11:45 [place] # 0.7 K/mm3 (0.0-0.8) 07/30/18 11:45 Eos # 0.4 K/mm3 (0.0-0.4) 07/30/18 11:45 Baso # 0.1 K/mm3 (0.0-0.1) 07/30/18 11:45 Seg Neutrophils % 53.4 % (40.0-70.0) 07/30/18 11:45 Seg Neutrophils # 3.4 K/mm3 (1.8-7.7) 07/30/18 11:45 PT 13.1 Sec. (12.2-14.9) 07/30/18 11:45 INR 0.95 (0.87-1.13) 07/30/18 11:45 APTT 42.5 Sec. (24.2-36.6) H 07/30/18 11:45 Sodium 142 mmol/L (137-145) 07/30/18 11:45 Potassium 4.1 mmol/L (3.6-5.0) 07/30/18 11:45 Chloride 101.8 mmol/L (98-107) 07/30/18 11:45 Carbon Dioxide 25 mmol/L (22-30) 07/30/18 11:45 Anion Gap 19 mmol/L 07/30/18 11:45 BUN 17 mg/dL (9-20) 07/30/18 11:45 Creatinine 0.8 mg/dL (0.8-1.5) 07/30/18 11:45 Estimated GFR > 60 ml/min 07/30/18 11:45 BUN/Creatinine Ratio 21 % 07/30/18 11:45 Glucose 136 mg/dL (75-100) H 07/30/18 11:45 POC Glucose 117 (70-105) H 08/01/18 10:53 Lactic Acid 1.60 mmol/L (0.7-2.0) 07/30/18 11:45 Calcium 9.8 mg/dL (8.4-10.2) 07/30/18 11:45 Magnesium 1.80 mg/dL (1.7-2.3) 08/01/18 04:33 Total Bilirubin < 0.20 mg/dL (0.1-1.2) 07/30/18 11:45 AST 17 units/L (5-40) 07/30/18 11:45 ALT 11 units/L (7-56) 07/30/18 11:45 Alkaline Phosphatase 87 units/L (35-129) 07/30/18 11:45 Ammonia 39.0 umol/L (25-60) 08/01/18 04:33 Troponin T < 0.010 ng/mL (0.00-0.029) 07/30/18 11:45 Total Protein 7.8 g/dL (6.3-8.2) 07/30/18 11:45 Albumin 4.8 g/dL (3.9-5) 07/30/18 11:45 Albumin/Globulin Ratio 1.6 % 07/30/18 11:45 Triglycerides 322 mg/dL (2-149) H 07/31/18 17:28 Cholesterol 200 mg/dL (50-199) H 07/31/18 17:28 LDL Cholesterol Direct 137 mg/dL (50-130) H 07/31/18 17:28 HDL Cholesterol 31 mg/dL (40-59) L 07/31/18 17:28 Cholesterol/HDL Ratio 6.45 % 07/31/18 17:28 Vitamin B12 727.7 pg/mL (211-911) 07/31/18 17:28 Folate > 20 ng/mL (7.3-26.0) 07/31/18 17:28 TSH 2.230 mlU/mL (0.270-4.200) 07/30/18 11:45 Free T4 0.75 ng/dL (0.76-1.46) L 07/31/18 17:20 Urine Color Yellow (Yellow) 07/30/18 13:19 Urine Turbidity Clear (Clear) 07/30/18 13:19 Urine pH 6.0 (5.0-7.0) 07/30/18 13:19 Ur Specific Foster 1.006 (1.003-1.030) 07/30/18 13:19 Urine Protein <15 mg/dl mg/dL (Negative) 07/30/18 13:19 Urine Glucose (UA) 50 mg/dL (Negative) 07/30/18 13:19 Urine Ketones Neg mg/dL (Negative) 07/30/18 13:19 Urine Blood Neg (Negative) 07/30/18 13:19 Urine Nitrite Neg (Negative) 07/30/18 13:19 Urine Bilirubin Neg (Negative) 07/30/18 13:19 Urine Urobilinogen < 2.0 mg/dL (<2.0) 07/30/18 13:19 Ur Leukocyte Esterase Neg (Negative) 07/30/18 13:19 Urine WBC (Auto) < 1.0 /HPF (0.0-6.0) 07/30/18 13:19 Urine RBC (Auto) < 1.0 /HPF (0.0-6.0) 07/30/18 13:19 U Epithel Cells (Auto) < 1.0 /HPF (0-13.0) 07/30/18 13:19 Urine Opiates Screen Presumptive negative 07/30/18 13:19 Urine Methadone Screen Presumptive negative 07/30/18 13:19 Ur Barbiturates Screen Presumptive negative 07/30/18 13:19 Ur Phencyclidine Scrn Presumptive negative 07/30/18 13:19 Ur Amphetamines Screen Presumptive negative 07/30/18 13:19 U Benzodiazepines Scrn Presumptive positive 07/30/18 13:19 Urine Cocaine Screen Presumptive negative 07/30/18 13:19 U Marijuana (THC) Screen Presumptive negative 07/30/18 13:19 Drugs of Abuse Note Disclamer 07/30/18 13:19 Plasma/Serum Alcohol < 0.01 % (0-0.07) 07/30/18 11:45 Blood Type O POSITIVE 07/30/18 12:11 Antibody Screen Negative 07/30/18 12:11
--- NOTE | 2018-08-01 12:13 | Progress Note ---
Subjective - Reason for Consult Consult date: 08/01/18 Reason for consult: Psychiatry Follow-up - Chief Complaint Chief complaint: "I don't know" 58-year-old male presented to the ER for AMS via [place]. Today the patient is calm and cooperative during the assessment. He stated that was a patient at a hospital in [place], [place] where he endorsed SI's and was transferred to [place]. He stated that he is having severe back pain from a fall yrs ago. He stated that he has "several rods/pins" in his back." He stated that his current condition has caused him to be depressed. He rate his depression 10/10 with 10 being the worse. He stated that he has attempted suicide in the past x 3. He stated that he suffer from PTSD. He stated that he witnessed 6 close friend be killed in a vehcle/train crash in 1973. He stated that their deaths 'hunts" him everyday. He denies Hi's and AVH's. He denies a poor appetite, but acknowledges erratic sleep. He denies recreational drug use. Mental Status Exam - Vital signs Last Vital Signs Temp 97.8 F 08/01/18 08:44 Pulse 66 08/01/18 08:44 Resp 18 08/01/18 08:44 BP 120/74 08/01/18 08:44 Pulse Ox 95 08/01/18 08:44 - Exam Narrative exam: MSE: Appearance: calm, cooperative Behavior: regular eye contact Speech: regular rate and tone Mood: "depressed" Affect: flat Thought Process: circumstantial Thought Content: denies HI's and AVH's Motor Activity: ambulatory Cognition: A/O x3 Insight: fair Judgment: poor Assessment and Plan Impression: MDD, Severe Type. PTSD. Somatic Symptom DO. 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 Today the patent is calm and cooperative during the assessment. The patient endorses SI's without a plan. DDx: R/O Bipolar DO Recommendation/Plan: Initiate 1013 and start Remeron 15 mg PO HS for depressio/PTSD. Discussed possible sucidality/medication induced amado with the patient reference Remeron. Dispo: The patient will be referred to inpatient psy services once medically clear. Will staff with Dr Kumar.
[2018-08-01] MEDS: PERCOCET 5/325 PO PRN ×2 (13:25→20:54)
[2018-08-01] MEDS: LOVENOX SUB-Q SCH ×2 (13:25→22:55)
[2018-08-01] MEDS: ECOTRIN PO SCH (13:25)
--- NOTE | 2018-08-01 14:17 | Query-Altered Level of Consc. ---
Shabana Faey__Stefan Date:__08/01/2018 Cesar/CHANTEL:___Cande Phone#:___[phone] Exercise your independent professional judgment when responding to this query. Questions asked do not imply a particular answer is desired or expected. We greatly appreciate your clarification on this issue. Clinical Documentation States: 58 YO Male Pt is confused/lethargic and unable to provide history. As per staff, the patient has experienced increased confusion over the past 2 days. Assessment and plan: Acute encephalopathy. Please provide an appropriate diagnosis clarifying the Etiology and Acuity of this clinical scenario: [ ] Metabolic Encephalopathy [ ] Toxic Encephalopathy [ ] Toxic - Metabolic Encephalopathy [ ] Septic Encephalopathy with Sepsis [ ] Septic Encephalopathy without Sepsis [ ] Acute Hepatic Encephalopathy [ ] Subacute Hepatic Encephalopathy [ ] Other: [ x] Unable To Determine [ ]Comment/Explanation: Present on Admission: [x ] Yes (Y) [ ] Clinically undeterminable (W) [ ] No (N) Please also document response in your Progress Notes and/or Discharge Summary and indicate if the condition was present on admission. MTDD
[2018-08-01] MEDS: ATIVAN IV PRN (22:05)
[2018-08-01] MEDS: REMERON PO SCH (22:55)
[2018-08-02 08:24] LABS: % Iron Saturation 30.72 %
[2018-08-02] MEDS: ATIVAN IV PRN (08:43)
[2018-08-02] MEDS: PERCOCET 5/325 PO PRN ×2 (08:43→18:03)
--- NOTE | 2018-08-02 11:04 | Progress Note ---
Assessment and Plan Assessment and plan: Acute lacunar CVA. CT scan of the head is negative. CT angio of neck just showed 50% stenosis proximally in the right internal carotid artery but normal on the left, CT angiogram head was normal. MRI of the head is negative on diffusion and GRE but shows some periventricular microvascular disease pe ripherally and a thin layer of microvascular disease periventricularly on FLAIR and some mild cerebral atrophy. MRA of the head is normal. PT/OT. Neurology following and recommended repeat brain MRI that is pending which was completed this morning to evaluate for brainstem stroke that would be in the 6% false negative MRI category on initial scan. If negative, may need spine MRIs. Acute encephalopathy. Neurology following. Etiology may be secondary to above. Oropharyngeal dysphagia. Speech therapy perform modified barium swallow that showed no signs of aspiration. Continue dysphagia/mechanical soft diet. Diabetes mellitus type II. Continue Accu-Cheks and sliding scale insulin. C onsistent carbohydrate diet. Restless leg syndrome. Per neurology Common Migraine, intractable. Per Neurology. Hypertension. Continue antihypertensive medications. PTSD. Psychiatric consultation pending. Depression. As above. Substance abuse/cocaine dependence. History Interval history: No new issues overnight. Hospitalist Physical - Constitutional Vitals: Temp Pulse Resp BP Pulse Ox 97.6 F 68 18 120/73 97 08/02/18 07:29 08/02/18 04:31 08/02/18 07:29 08/02/18 07:29 08/02/18 04:31 General appearance: Present: no acute distress, cachectic, disheveled - EENT Eyes: Present: PERRL, EOM intact ENT: hearing intact, clear oral mucosa, dentition normal - Neck Neck: Present: supple, normal ROM - Respiratory Respiratory effort: normal Respiratory: bilateral: CTA - Cardiovascular Rhythm: regular Heart Sounds: Present: S1 & S2. Absent: gallop, rub - Extremities Extremities: no ischemia, No edema, Full ROM - Abdominal General gastrointestinal: soft, non-tender, non-distended, normal bowel sounds - Integumentary Integumentary: Present: clear, warm, dry - Neurologic Neurologic: CNII-XII intact, moves all extremities Results - Labs CBC & Chem 7: 07/30/18 11:45 07/30/18 11:45 Labs: Laboratory Last Values WBC 6.4 K/mm3 (4.5-11.0) 07/30/18 11:45 RBC 4.38 M/mm3 (3.65-5.03) 07/30/18 11:45 Hgb 14.2 gm/dl (11.8-15.2) 07/30/18 11:45 Hct 40.0 % (35.5-45.6) 07/30/18 11:45 MCV 91 fl (84-94) 07/30/18 11:45 MCH 33 pg (28-32) H 07/30/18 11:45 MCHC 36 % (32-34) H 07/30/18 11:45 RDW 14.4 % (13.2-15.2) 07/30/18 11:45 Plt Count 266 K/mm3 (140-440) 07/30/18 11:45 Lymph % (Auto) 29.4 % (13.4-35.0) 07/30/18 11:45 [place] % (Auto) 10.2 % (0.0-7.3) H 07/30/18 11:45 Eos % (Auto) 5.8 % (0.0-4.3) H 07/30/18 11:45 Baso % (Auto) 1.2 % (0.0-1.8) 07/30/18 11:45 Lymph # 1.9 K/mm3 (1.2-5.4) 07/30/18 11:45 [place] # 0.7 K/mm3 (0.0-0.8) 07/30/18 11:45 Eos # 0.4 K/mm3 (0.0-0.4) 07/30/18 11:45 Baso # 0.1 K/mm3 (0.0-0.1) 07/30/18 11:45 Seg Neutrophils % 53.4 % (40.0-70.0) 07/30/18 11:45 Seg Neutrophils # 3.4 K/mm3 (1.8-7.7) 07/30/18 11:45 PT 13.1 Sec. (12.2-14.9) 07/30/18 11:45 INR 0.95 (0.87-1.13) 07/30/18 11:45 APTT 42.5 Sec. (24.2-36.6) H 07/30/18 11:45 Sodium 142 mmol/L (137-145) 07/30/18 11:45 Potassium 4.1 mmol/L (3.6-5.0) 07/30/18 11:45 Chloride 101.8 mmol/L (98-107) 07/30/18 11:45 Carbon Dioxide 25 mmol/L (22-30) 07/30/18 11:45 Anion Gap 19 mmol/L 07/30/18 11:45 BUN 17 mg/dL (9-20) 07/30/18 11:45 Creatinine 0.8 mg/dL (0.8-1.5) 07/30/18 11:45 Estimated GFR > 60 ml/min 07/30/18 11:45 BUN/Creatinine Ratio 21 % 07/30/18 11:45 Glucose 136 mg/dL (75-100) H 07/30/18 11:45 POC Glucose 103 (70-105) 08/02/18 06:13 Lactic Acid 1.60 mmol/L (0.7-2.0) 07/30/18 11:45 Calcium 9.8 mg/dL (8.4-10.2) 07/30/18 11:45 Magnesium 1.80 mg/dL (1.7-2.3) 08/01/18 04:33 Iron 106 ug/dL (49-181) 08/02/18 07:01 TIBC 345 mcg/dL (250-450) 08/02/18 07:01 % Saturation 30.72 % 08/02/18 07:01 Transferrin 269 mg/dl (180-329) 08/02/18 07:01 Ferritin 249.4 ng/mL (13.0-400.0) 08/02/18 07:01 Total Bilirubin < 0.20 mg/dL (0.1-1.2) 07/30/18 11:45 AST 17 units/L (5-40) 07/30/18 11:45 ALT 11 units/L (7-56) 07/30/18 11:45 Alkaline Phosphatase 87 units/L (35-129) 07/30/18 11:45 Ammonia 39.0 umol/L (25-60) 08/01/18 04:33 Troponin T < 0.010 ng/mL (0.00-0.029) 07/30/18 11:45 Total Protein 7.8 g/dL (6.3-8.2) 07/30/18 11:45 Albumin 4.8 g/dL (3.9-5) 07/30/18 11:45 Albumin/Globulin Ratio 1.6 % 07/30/18 11:45 Triglycerides 322 mg/dL (2-149) H 07/31/18 17:28 Cholesterol 200 mg/dL (50-199) H 07/31/18 17:28 LDL Cholesterol Direct 137 mg/dL (50-130) H 07/31/18 17:28 HDL Cholesterol 31 mg/dL (40-59) L 07/31/18 17:28 Cholesterol/HDL Ratio 6.45 % 07/31/18 17:28 Vitamin B12 727.7 pg/mL (211-911) 07/31/18 17:28 Folate > 20 ng/mL (7.3-26.0) 07/31/18 17:28 TSH 2.230 mlU/mL (0.270-4.200) 07/30/18 11:45 Free T4 0.75 ng/dL (0.76-1.46) L 07/31/18 17:20 Urine Color Yellow (Yellow) 07/30/18 13:19 Urine Turbidity Clear (Clear) 07/30/18 13:19 Urine pH 6.0 (5.0-7.0) 07/30/18 13:19 Ur Specific [place] 1.006 (1.003-1.030) 07/30/18 13:19 Urine Protein <15 mg/dl mg/dL (Negative) 07/30/18 13:19 Urine Glucose (UA) 50 mg/dL (Negative) 07/30/18 13:19 Urine Ketones Neg mg/dL (Negative) 07/30/18 13:19 Urine Blood Neg (Negative) 07/30/18 13:19 Urine Nitrite Neg (Negative) 07/30/18 13:19 Urine Bilirubin Neg (Negative) 07/30/18 13:19 Urine Urobilinogen < 2.0 mg/dL (<2.0) 07/30/18 13:19 Ur Leukocyte Esterase Neg (Negative) 07/30/18 13:19 Urine WBC (Auto) < 1.0 /HPF (0.0-6.0) 07/30/18 13:19 Urine RBC (Auto) < 1.0 /HPF (0.0-6.0) 07/30/18 13:19 U Epithel Cells (Auto) < 1.0 /HPF (0-13.0) 07/30/18 13:19 Urine Opiates Screen Presumptive negative 07/30/18 13:19 Urine Methadone Screen Presumptive negative 07/30/18 13:19 Ur Barbiturates Screen Presumptive negative 07/30/18 13:19 Ur Phencyclidine Scrn Presumptive negative 07/30/18 13:19 Ur Amphetamines Screen Presumptive negative 07/30/18 13:19 U Benzodiazepines Scrn Presumptive positive 07/30/18 13:19 Urine Cocaine Screen Presumptive negative 07/30/18 13:19 U Marijuana (THC) Screen Presumptive negative 07/30/18 13:19 Drugs of Abuse Note Disclamer 07/30/18 13:19 Plasma/Serum Alcohol < 0.01 % (0-0.07) 07/30/18 11:45 Blood Type O POSITIVE 07/30/18 12:11 Antibody Screen Negative 07/30/18 12:11
--- NOTE | 2018-08-02 12:21 | Magnetic Resonance Report ---
MRI OF THE BRAIN WITHOUT CONTRAST: HISTORY: Weak left side PROCEDURE: Multiplanar, multisequence MR imaging of the brain without IV contrast was performed. Thin collimation imaging through the posterior fossa. FINDINGS: Compared to 07/31/18 MRI brain. Diffuse cortical volume loss is again noted. No evidence for acute ischemia, hemorrhage or mass. No chronic infarct or extra-axial fluid collection. The midline structures are central. The basal cisterns are patent. Normal ventricular size. The orbital cavities and sella turcica demonstrate no abnormality. The visualized paranasal sinuses and mastoid air cells are well aerated. IMPRESSION: Unremarkable non-enhanced MRI of the brain. Thin collimation imaging through the posterior fossa reveals no additional findings since the exam 2 days ago.
[2018-08-02] MEDS: LOVENOX SUB-Q SCH ×2 (12:29→22:00)
--- NOTE | 2018-08-02 13:00 | Progress Note ---
Subjective - Reason for Consult Consult date: 08/02/18 Reason for consult: Psychiatry Follow-up - Chief Complaint Chief complaint: "I have a lot going on" 58-year-old male presented to the ER for AMS via [place]. Today the patient is calm and cooperative during the assessment. He stated that his SI's is "50/50' at this time. He denies any nightmares (PTSD). He stated that he slept well last night. He stated that he has a lot to workout reference his mental health. He denies HI's and AVH's. He denies any side effects of his medication. Mental Status Exam - Vital signs Last Vital Signs Temp 97.6 F 08/02/18 07:29 Pulse 68 08/02/18 04:31 Resp 18 08/02/18 07:29 BP 120/73 08/02/18 07:29 Pulse Ox 97 08/02/18 11:35 - Exam Narrative exam: MSE: Appearance: calm, cooperative Behavior: regular eye contact Speech: regular rate and tone Mood: "okay" Affect: flat Thought Process: circumstantial Thought Content: denies HI's and AVH's Motor Activity: ambulatory Cognition: A/O x3 Insight: fair Judgment: variable Assessment and Plan Impression: MDD, Severe Type. PTSD. Somatic Symptom DO. 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 Today the patent is calm and cooperative during the assessment. DDx: R/O Bipolar DO Recommendation/Plan: Continue 1013 and Remeron 15 mg PO HS for depressio/PTSD. Discussed possible sucidality/medication induced amado with the patient reference Remeron. Dispo: The patient will be referred to inpatient psy services once medically clear. Will staff with Dr Kumar.
[2018-08-02] MEDS: ECOTRIN PO SCH (15:31)
--- NOTE | 2018-08-02 18:25 | Progress Note ---
Assessment and Plan Impression: 1. Carpal tunnel syndrome, left 2. Paresthesias 3. Cervical radiculopathy, possible 4. Diplopia Plan: 1. Cervical spine MRI. 2. I told him to try to find his left wrist splint to wear at night at home. 3. I explained calf tensing maneuvers for his dizziness. 4. Vitamin B6 200 mg a day to help carpal tunnel symptoms. 5. I told him he should see his Eye doctor to check for ocular causes of his diplopia. 35 minutes spent with extensive testing, and explanation for calf tensing maneuvers and use of wrist splint as well as vitamin B6 and need for cervical spine MRI. Subjective Date of service: 08/02/18 Principal diagnosis: carpal tunnel syndrome, possible cervical radiculopathy Interval history: This 58-year-old white male is seen again in follow-up for left arm weakness pain and paresthesias. Brain MRI was negative initially and repeat one today was also negative, done to exclude a possibly false-negative initial scan. He feels his left arm and hand are better. He has a left wrist splint at home he used in the past. He's had no carpal tunnel surgeries. He states he has one and a half vision. He has had glaucoma surgery bilaterally but eyedrops were stopped by his eye physician. Eye pressure was measured in [facility] before coming here and was said to be normal he says. Objective - Exam Narrative Exam: General appearance: well-developed well-nourished(per BMI) early 60s white male in [facility]. Neurologic Exam: Mental Status: AAO eventually to first July 2017, speech is clear, names pen and tip of pen. Cranial Nerves: lópez full, PERRLA, EOMs full without nystagmus but has 1.5 images to monocular left-sided testing and blurring of images with monocular right-sided testing, no facial weakness, hears finger rub bilaterally, shoulder shrug is 5 X 2, tongue protrudes midline. Cerebellar: finger to nose is off target on the right without tremor, [id number] is intact bilaterally. Motor Exam Upper Extremities: no drift or pronation, Corey are normal. Motor exam of hands: APB is 4+ bilaterally with pain especially on the left, thenar eminence is diminished right more than left, opponens are 4+ and adductor pollicis are 5 bilaterally. No fasciculations are noted visually. Special tests: Tinel's is positive at the left carpal tunnel radiating into the palm but negative on the right. Tinel's for the cubital tunnels and Guyon's canal's are negative bilaterally. Motor Exam Lower Extremities: no leg lag; iliopsoas is 4+ with pain compared to 5 on the right, quadriceps 4- bilaterally, anterior tibial is 4- left, g astrocnemius is 4+ left. Corey are slow bilaterally especially left. - Vital Sign Vital Signs - 12hr 08/02/18 08/02/18 08/02/18 07:29 10:00 11:35 Temperature 97.6 F Respiratory 18 18 Rate Blood Pressure 120/73 O2 Sat by Pulse 97 Oximetry - Laboratory Findings CBC and BMP: 07/30/18 11:45 07/30/18 11:45 Abnormal Lab Findings: Abnormal Labs 07/30/18 07/30/18 07/30/18 11:45 11:45 11:45 MCH 33 H MCHC 36 H [place] % (Auto) 10.2 H Eos % (Auto) 5.8 H APTT 42.5 H Glucose 136 H POC Glucose Triglycerides Cholesterol LDL Cholesterol Direct HDL Cholesterol Free T4 07/30/18 07/31/18 07/31/18 11:46 15:57 17:20 MCH MCHC [place] % (Auto) Eos % (Auto) APTT Glucose POC Glucose 157 H 132 H Triglycerides Cholesterol LDL Cholesterol Direct HDL Cholesterol Free T4 0.75 L 07/31/18 08/01/18 08/01/18 17:28 10:53 16:35 MCH MCHC [place] % (Auto) Eos % (Auto) APTT Glucose POC Glucose 117 H 170 H Triglycerides 322 H Cholesterol 200 H LDL Cholesterol Direct 137 H HDL Cholesterol 31 L Free T4 08/01/18 08/02/18 21:20 12:27 MCH MCHC [place] % (Auto) Eos % (Auto) APTT Glucose POC Glucose 119 H 163 H Triglycerides Cholesterol LDL Cholesterol Direct HDL Cholesterol Free T4
[2018-08-02] MEDS: REMERON PO SCH (22:00)
[2018-08-02] MEDS: VITAMIN B-6 PO SCH (22:06)
[2018-08-03] MEDS: PERCOCET 5/325 PO PRN ×2 (09:47→16:24)
[2018-08-03] MEDS: LOVENOX SUB-Q SCH ×3 (09:47→22:09)
[2018-08-03] MEDS: ECOTRIN PO SCH (09:47)
--- NOTE | 2018-08-03 10:32 | Progress Note ---
Subjective - Reason for Consult Consult date: 08/03/18 Reason for consult: Psychiatry Follow-up - Chief Complaint Chief complaint: "Hello" 58-year-old male presented to the ER for AMS via [place]. Today the patient is calm and cooperative, but withdrawn during the assessment. He stated that he feels "hopeless" currently about life. He would not confirm or deny SI's when asked. He stated that he maybe in better "spirits" tomorrow. He denies HI's and AVH's. He denies any side effects of his medication. Mental Status Exam - Vital signs Last Vital Signs Temp 98.1 F 08/03/18 08:38 Pulse 58 L 08/03/18 08:38 Resp 16 08/03/18 08:38 BP 116/70 08/03/18 08:38 Pulse Ox 96 08/03/18 09:43 - Exam Narrative exam: MSE: Appearance: calm, cooperative Behavior: regular eye contact Speech: regular rate and tone Mood: "depressed" withdrawn Affect: flat Thought Process: circumstantial Thought Content: denies HI's and AVH's Motor Activity: ambulatory Cognition: A/O x3 Insight: fair Judgment: variable Assessment and Plan Impression: MDD, Severe Type. PTSD. Somatic Symptom DO. 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 Today the patent is calm and cooperative during the assessment. DDx: R/O Bipolar DO Recommendation/Plan: Continue 1013 and Remeron 15 mg PO HS for depressio/PTSD. Discussed possible sucidality/medication induced amado with the patient reference Remeron. Dispo: The patient will be referred to inpatient psy services once medically clear. Will staff with Dr Kumar.
--- NOTE | 2018-08-03 11:05 | Progress Note ---
Assessment and Plan Assessment and plan: Acute lacunar CVA. CT scan of the head is negative. CT angio of neck just showed 50% stenosis proximally in the right internal carotid artery but normal on the left, CT angiogram head was normal. MRI of the head is negative on diffusion and GRE but shows some periventricular microvascular disease pe ripherally and a thin layer of microvascular disease periventricularly on FLAIR and some mild cerebral atrophy. MRA of the head is normal. PT/OT. Neurology following and recommended repeat brain MRI that was found to be negative. Acute encephalopathy. Neurology following. Etiology may be secondary to above. Oropharyngeal dysphagia. Speech therapy perform modified barium swallow that showed no signs of aspiration. Continue dysphagia/mechanical soft diet. Diabetes mellitus type II. Continue Accu-Cheks and sliding scale insulin. Consistent carbohydrate diet. Restless leg syndrome. Per neurology Common Migraine, intractable. Per Neurology. Hypertension. Continue antihypertensive medications. PTSD. Psychiatry following. Major depressive disorder. Remeron 15 mg PO HS Suicidal ideation. Continue 1013 per psychiatry. Substance abuse/cocaine dependence. History Interval history: No new issues overnight. Hospitalist Physical - Constitutional Vitals: Temp Pulse Resp BP Pulse Ox 98.1 F 58 L 16 116/70 96 08/03/18 08:38 08/03/18 08:38 08/03/18 08:38 08/03/18 08:38 08/03/18 09:43 General appearance: Present: no acute distress, cachectic, disheveled - EENT Eyes: Present: PERRL, EOM intact ENT: hearing intact, clear oral mucosa, dentition normal - Neck Neck: Present: supple, normal ROM - Respiratory Respiratory effort: normal Respiratory: bilateral: CTA - Cardiovascular Rhythm: regular Heart Sounds: Present: S1 & S2. Absent: gallop, rub - Extremities Extremities: no ischemia, No edema, Full ROM - Abdominal General gastrointestinal: soft, non-tender, non-distended, normal bowel sounds - Integumentary Integumentary: Present: clear, warm, dry - Neurologic Neurologic: CNII-XII intact, moves all extremities Results - Labs CBC & Chem 7: 07/30/18 11:45 07/30/18 11:45 Labs: Laboratory Last Values WBC 6.4 K/mm3 (4.5-11.0) 07/30/18 11:45 RBC 4.38 M/mm3 (3.65-5.03) 07/30/18 11:45 Hgb 14.2 gm/dl (11.8-15.2) 07/30/18 11:45 Hct 40.0 % (35.5-45.6) 07/30/18 11:45 MCV 91 fl (84-94) 07/30/18 11:45 MCH 33 pg (28-32) H 07/30/18 11:45 MCHC 36 % (32-34) H 07/30/18 11:45 RDW 14.4 % (13.2-15.2) 07/30/18 11:45 Plt Count 266 K/mm3 (140-440) 07/30/18 11:45 Lymph % (Auto) 29.4 % (13.4-35.0) 07/30/18 11:45 [place] % (Auto) 10.2 % (0.0-7.3) H 07/30/18 11:45 Eos % (Auto) 5.8 % (0.0-4.3) H 07/30/18 11:45 Baso % (Auto) 1.2 % (0.0-1.8) 07/30/18 11:45 Lymph # 1.9 K/mm3 (1.2-5.4) 07/30/18 11:45 [place] # 0.7 K/mm3 (0.0-0.8) 07/30/18 11:45 Eos # 0.4 K/mm3 (0.0-0.4) 07/30/18 11:45 Baso # 0.1 K/mm3 (0.0-0.1) 07/30/18 11:45 Seg Neutrophils % 53.4 % (40.0-70.0) 07/30/18 11:45 Seg Neutrophils # 3.4 K/mm3 (1.8-7.7) 07/30/18 11:45 PT 13.1 Sec. (12.2-14.9) 07/30/18 11:45 INR 0.95 (0.87-1.13) 07/30/18 11:45 APTT 42.5 Sec. (24.2-36.6) H 07/30/18 11:45 Sodium 142 mmol/L (137-145) 07/30/18 11:45 Potassium 4.1 mmol/L (3.6-5.0) 07/30/18 11:45 Chloride 101.8 mmol/L (98-107) 07/30/18 11:45 Carbon Dioxide 25 mmol/L (22-30) 07/30/18 11:45 Anion Gap 19 mmol/L 07/30/18 11:45 BUN 17 mg/dL (9-20) 07/30/18 11:45 Creatinine 0.8 mg/dL (0.8-1.5) 07/30/18 11:45 Estimated GFR > 60 ml/min 07/30/18 11:45 BUN/Creatinine Ratio 21 % 07/30/18 11:45 Glucose 136 mg/dL (75-100) H 07/30/18 11:45 POC Glucose 90 (70-105) 08/03/18 07:13 Lactic Acid 1.60 mmol/L (0.7-2.0) 07/30/18 11:45 Calcium 9.8 mg/dL (8.4-10.2) 07/30/18 11:45 Magnesium 1.80 mg/dL (1.7-2.3) 08/01/18 04:33 Iron 106 ug/dL (49-181) 08/02/18 07:01 TIBC 345 mcg/dL (250-450) 08/02/18 07:01 % Saturation 30.72 % 08/02/18 07:01 Transferrin 269 mg/dl (180-329) 08/02/18 07:01 Ferritin 249.4 ng/mL (13.0-400.0) 08/02/18 07:01 Total Bilirubin < 0.20 mg/dL (0.1-1.2) 07/30/18 11:45 AST 17 units/L (5-40) 07/30/18 11:45 ALT 11 units/L (7-56) 07/30/18 11:45 Alkaline Phosphatase 87 units/L (35-129) 07/30/18 11:45 Ammonia 39.0 umol/L (25-60) 08/01/18 04:33 Troponin T < 0.010 ng/mL (0.00-0.029) 07/30/18 11:45 Total Protein 7.8 g/dL (6.3-8.2) 07/30/18 11:45 Albumin 4.8 g/dL (3.9-5) 07/30/18 11:45 Albumin/Globulin Ratio 1.6 % 07/30/18 11:45 Triglycerides 322 mg/dL (2-149) H 07/31/18 17:28 Cholesterol 200 mg/dL (50-199) H 07/31/18 17:28 LDL Cholesterol Direct 137 mg/dL (50-130) H 07/31/18 17:28 HDL Cholesterol 31 mg/dL (40-59) L 07/31/18 17:28 Cholesterol/HDL Ratio 6.45 % 07/31/18 17:28 Vitamin B12 727.7 pg/mL (211-911) 07/31/18 17:28 Folate > 20 ng/mL (7.3-26.0) 07/31/18 17:28 TSH 2.230 mlU/mL (0.270-4.200) 07/30/18 11:45 Free T4 0.75 ng/dL (0.76-1.46) L 07/31/18 17:20 T3 (GLADYS) 109 ng/dL (76-181) 07/31/18 17:20 Urine Color Yellow (Yellow) 07/30/18 13:19 Urine Turbidity Clear (Clear) 07/30/18 13:19 Urine pH 6.0 (5.0-7.0) 07/30/18 13:19 Ur Specific [place] 1.006 (1.003-1.030) 07/30/18 13:19 Urine Protein <15 mg/dl mg/dL (Negative) 07/30/18 13:19 Urine Glucose (UA) 50 mg/dL (Negative) 07/30/18 13:19 Urine Ketones Neg mg/dL (Negative) 07/30/18 13:19 Urine Blood Neg (Negative) 07/30/18 13:19 Urine Nitrite Neg (Negative) 07/30/18 13:19 Urine Bilirubin Neg (Negative) 07/30/18 13:19 Urine Urobilinogen < 2.0 mg/dL (<2.0) 07/30/18 13:19 Ur Leukocyte Esterase Neg (Negative) 07/30/18 13:19 Urine WBC (Auto) < 1.0 /HPF (0.0-6.0) 07/30/18 13:19 Urine RBC (Auto) < 1.0 /HPF (0.0-6.0) 07/30/18 13:19 U Epithel Cells (Auto) < 1.0 /HPF (0-13.0) 07/30/18 13:19 Urine Opiates Screen Presumptive negative 07/30/18 13:19 Urine Methadone Screen Presumptive negative 07/30/18 13:19 Ur Barbiturates Screen Presumptive negative 07/30/18 13:19 Ur Phencyclidine Scrn Presumptive negative 07/30/18 13:19 Ur Amphetamines Screen Presumptive negative 07/30/18 13:19 U Benzodiazepines Scrn Presumptive positive 07/30/18 13:19 Urine Cocaine Screen Presumptive negative 07/30/18 13:19 U Marijuana (THC) Screen Presumptive negative 07/30/18 13:19 Drugs of Abuse Note Disclamer 07/30/18 13:19 Plasma/Serum Alcohol < 0.01 % (0-0.07) 07/30/18 11:45 Blood Type O POSITIVE 07/30/18 12:11 Antibody Screen Negative 07/30/18 12:11
[2018-08-03] MEDS: VITAMIN B-6 PO SCH (11:21)
[2018-08-03] MEDS: NACL 0.9% 1000 ML 1,000 ML IV SCH (16:14)
[2018-08-03] MEDS: REMERON PO SCH ×2 (22:05→22:08)
[2018-08-03] MEDS: FOLVITE 1 MG, VITAMIN B-1 100 MG, INFUVITE 10 ML in NACL 0.9% 1000 ML 1,000 ML IV SCH (23:59)
[2018-08-04] MEDS: ECOTRIN PO SCH (09:39)
[2018-08-04] MEDS: NACL 0.9% 1000 ML 1,000 ML IV SCH ×2 (09:40→16:25)
--- NOTE | 2018-08-04 09:44 | Progress Note ---
Subjective - Reason for Consult Consult date: 08/04/18 Reason for consult: Psychiatry Follow-up - Chief Complaint Chief complaint: "Hello" 58-year-old male presented to the ER for AMS via [place]. Today the patient is calm and cooperative during the assessment. He stated that his SI's have "ceased." He stated that he look forward to being discharged. He stated that he is seen at [facility] in [place], [place] for outpatient psy services. He denies SI/HI's and AVH's. He denies any side effects of his medication. Mental Status Exam - Vital signs Last Vital Signs Temp 97.4 F L 08/04/18 08:32 Pulse 62 08/04/18 08:32 Resp 22 08/04/18 08:32 BP 132/81 08/04/18 08:32 Pulse Ox 95 08/04/18 08:32 - Exam Narrative exam: MSE: Appearance: calm, cooperative Behavior: regular eye contact Speech: regular rate and tone Mood: "okay" Affect: congruent to mood Thought Process: circumstantial Thought Content: denies SI/HI's and AVH's Motor Activity: ambulatory Cognition: A/O x3 Insight: fair Judgment: fair Assessment and Plan Impression: MDD, Severe Type. PTSD. Somatic Symptom DO. 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 Today the patent is calm and cooperative during the assessment. DDx: R/O Bipolar DO Recommendation/Plan: Reevaluate 1013 in 24 hours and Remeron 15 mg PO HS for depressio/PTSD. Discussed possible sucidality/medication induced amado with the patient reference Remeron. Dispo: If the patient's 1013 is rescinded, he can follow up at [facility] for outpatient psy services. Will staff with Dr Kumar.
--- NOTE | 2018-08-04 11:32 | Progress Note ---
Assessment and Plan Assessment and plan: Acute lacunar CVA. CT scan of the head is negative. CT angio of neck just showed 50% stenosis proximally in the right internal carotid artery but normal on the left, CT angiogram head was normal. MRI of the head is negative on diffusion and GRE but shows some periventricular microvascular disease pe ripherally and a thin layer of microvascular disease periventricularly on FLAIR and some mild cerebral atrophy. MRA of the head is normal. PT/OT. Neurology following and recommended repeat brain MRI that was found to be negative. Acute encephalopathy. Neurology following. Etiology may be secondary to above. Oropharyngeal dysphagia. Speech therapy perform modified barium swallow that showed no signs of aspiration. Continue dysphagia/mechanical soft diet. Diabetes mellitus type II. Continue Accu-Cheks and sliding scale insulin. Consistent carbohydrate diet. Restless leg syndrome. Per neurology Common Migraine, intractable. Per Neurology. Hypertension. Continue antihypertensive medications. PTSD. Psychiatry following. Major depressive disorder. Remeron 15 mg PO HS Suicidal ideation. Continue 1013 per psychiatry. Substance abuse/cocaine dependence. History Interval history: No new issues overnight. Hospitalist Physical - Constitutional Vitals: Temp Pulse Resp BP Pulse Ox 97.7 F 58 L 20 137/74 98 08/04/18 11:18 08/04/18 11:18 08/04/18 11:18 08/04/18 11:18 08/04/18 11:18 General appearance: Present: no acute distress, cachectic, disheveled - EENT Eyes: Present: PERRL, EOM intact ENT: hearing intact, clear oral mucosa, dentition normal - Neck Neck: Present: supple, normal ROM - Respiratory Respiratory effort: normal Respiratory: bilateral: CTA - Cardiovascular Rhythm: regular Heart Sounds: Present: S1 & S2. Absent: gallop, rub - Extremities Extremities: no ischemia, No edema, Full ROM - Abdominal General gastrointestinal: soft, non-tender, non-distended, normal bowel sounds - Integumentary Integumentary: Present: clear, warm, dry - Neurologic Neurologic: CNII-XII intact, moves all extremities Results - Labs CBC & Chem 7: 07/30/18 11:45 07/30/18 11:45 Labs: Laboratory Last Values WBC 6.4 K/mm3 (4.5-11.0) 07/30/18 11:45 RBC 4.38 M/mm3 (3.65-5.03) 07/30/18 11:45 Hgb 14.2 gm/dl (11.8-15.2) 07/30/18 11:45 Hct 40.0 % (35.5-45.6) 07/30/18 11:45 MCV 91 fl (84-94) 07/30/18 11:45 MCH 33 pg (28-32) H 07/30/18 11:45 MCHC 36 % (32-34) H 07/30/18 11:45 RDW 14.4 % (13.2-15.2) 07/30/18 11:45 Plt Count 266 K/mm3 (140-440) 07/30/18 11:45 Lymph % (Auto) 29.4 % (13.4-35.0) 07/30/18 11:45 [place] % (Auto) 10.2 % (0.0-7.3) H 07/30/18 11:45 Eos % (Auto) 5.8 % (0.0-4.3) H 07/30/18 11:45 Baso % (Auto) 1.2 % (0.0-1.8) 07/30/18 11:45 Lymph # 1.9 K/mm3 (1.2-5.4) 07/30/18 11:45 [place] # 0.7 K/mm3 (0.0-0.8) 07/30/18 11:45 Eos # 0.4 K/mm3 (0.0-0.4) 07/30/18 11:45 Baso # 0.1 K/mm3 (0.0-0.1) 07/30/18 11:45 Seg Neutrophils % 53.4 % (40.0-70.0) 07/30/18 11:45 Seg Neutrophils # 3.4 K/mm3 (1.8-7.7) 07/30/18 11:45 PT 13.1 Sec. (12.2-14.9) 07/30/18 11:45 INR 0.95 (0.87-1.13) 07/30/18 11:45 APTT 42.5 Sec. (24.2-36.6) H 07/30/18 11:45 Sodium 142 mmol/L (137-145) 07/30/18 11:45 Potassium 4.1 mmol/L (3.6-5.0) 07/30/18 11:45 Chloride 101.8 mmol/L (98-107) 07/30/18 11:45 Carbon Dioxide 25 mmol/L (22-30) 07/30/18 11:45 Anion Gap 19 mmol/L 07/30/18 11:45 BUN 17 mg/dL (9-20) 07/30/18 11:45 Creatinine 0.8 mg/dL (0.8-1.5) 07/30/18 11:45 Estimated GFR > 60 ml/min 07/30/18 11:45 BUN/Creatinine Ratio 21 % 07/30/18 11:45 Glucose 136 mg/dL (75-100) H 07/30/18 11:45 POC Glucose 171 (70-105) H 08/03/18 21:50 Lactic Acid 1.60 mmol/L (0.7-2.0) 07/30/18 11:45 Calcium 9.8 mg/dL (8.4-10.2) 07/30/18 11:45 Magnesium 1.80 mg/dL (1.7-2.3) 08/01/18 04:33 Iron 106 ug/dL (49-181) 08/02/18 07:01 TIBC 345 mcg/dL (250-450) 08/02/18 07:01 % Saturation 30.72 % 08/02/18 07:01 Transferrin 269 mg/dl (180-329) 08/02/18 07:01 Ferritin 249.4 ng/mL (13.0-400.0) 08/02/18 07:01 Total Bilirubin < 0.20 mg/dL (0.1-1.2) 07/30/18 11:45 AST 17 units/L (5-40) 07/30/18 11:45 ALT 11 units/L (7-56) 07/30/18 11:45 Alkaline Phosphatase 87 units/L (35-129) 07/30/18 11:45 Ammonia 39.0 umol/L (25-60) 08/01/18 04:33 Troponin T < 0.010 ng/mL (0.00-0.029) 07/30/18 11:45 Total Protein 7.8 g/dL (6.3-8.2) 07/30/18 11:45 Albumin 4.8 g/dL (3.9-5) 07/30/18 11:45 Albumin/Globulin Ratio 1.6 % 07/30/18 11:45 Triglycerides 322 mg/dL (2-149) H 07/31/18 17:28 Cholesterol 200 mg/dL (50-199) H 07/31/18 17:28 LDL Cholesterol Direct 137 mg/dL (50-130) H 07/31/18 17:28 HDL Cholesterol 31 mg/dL (40-59) L 07/31/18 17:28 Cholesterol/HDL Ratio 6.45 % 07/31/18 17:28 Vitamin B12 727.7 pg/mL (211-911) 07/31/18 17:28 25-OH Vitamin D Total 20 ng/mL (30-100) L 07/31/18 17:20 Folate > 20 ng/mL (7.3-26.0) 07/31/18 17:28 TSH 2.230 mlU/mL (0.270-4.200) 07/30/18 11:45 Free T4 0.75 ng/dL (0.76-1.46) L 07/31/18 17:20 T3 (GLADYS) 109 ng/dL (76-181) 07/31/18 17:20 Urine Color Yellow (Yellow) 07/30/18 13:19 Urine Turbidity Clear (Clear) 07/30/18 13:19 Urine pH 6.0 (5.0-7.0) 07/30/18 13:19 Ur Specific [place] 1.006 (1.003-1.030) 07/30/18 13:19 Urine Protein <15 mg/dl mg/dL (Negative) 07/30/18 13:19 Urine Glucose (UA) 50 mg/dL (Negative) 07/30/18 13:19 Urine Ketones Neg mg/dL (Negative) 07/30/18 13:19 Urine Blood Neg (Negative) 07/30/18 13:19 Urine Nitrite Neg (Negative) 07/30/18 13:19 Urine Bilirubin Neg (Negative) 07/30/18 13:19 Urine Urobilinogen < 2.0 mg/dL (<2.0) 07/30/18 13:19 Ur Leukocyte Esterase Neg (Negative) 07/30/18 13:19 Urine WBC (Auto) < 1.0 /HPF (0.0-6.0) 07/30/18 13:19 Urine RBC (Auto) < 1.0 /HPF (0.0-6.0) 07/30/18 13:19 U Epithel Cells (Auto) < 1.0 /HPF (0-13.0) 07/30/18 13:19 Urine Opiates Screen Presumptive negative 07/30/18 13:19 Urine Methadone Screen Presumptive negative 07/30/18 13:19 Ur Barbiturates Screen Presumptive negative 07/30/18 13:19 Ur Phencyclidine Scrn Presumptive negative 07/30/18 13:19 Ur Amphetamines Screen Presumptive negative 07/30/18 13:19 U Benzodiazepines Scrn Presumptive positive 07/30/18 13:19 Urine Cocaine Screen Presumptive negative 07/30/18 13:19 U Marijuana (THC) Screen Presumptive negative 07/30/18 13:19 Drugs of Abuse Note Disclamer 07/30/18 13:19 Plasma/Serum Alcohol < 0.01 % (0-0.07) 07/30/18 11:45 Blood Type O POSITIVE 07/30/18 12:11 Antibody Screen Negative 07/30/18 12:11
[2018-08-04] MEDS: LOVENOX SUB-Q SCH (16:24)
[2018-08-04] MEDS: VITAMIN B-6 PO SCH (16:28)
[2018-08-04] MEDS: REMERON PO SCH (22:25)
[2018-08-05] MEDS: FOLVITE 1 MG, VITAMIN B-1 100 MG, INFUVITE 10 ML in NACL 0.9% 1000 ML 1,000 ML IV SCH (04:37)
[2018-08-05] MEDS: LOVENOX SUB-Q SCH ×3 (04:38→22:55)
--- NOTE | 2018-08-05 09:29 | Progress Note ---
Subjective - Reason for Consult Consult date: 08/05/18 Reason for consult: Psychiatry Follow-up - Chief Complaint Chief complaint: "I am better" 58-year-old male presented to the ER for AMS via [place]. Today the patient is calm and cooperative during the assessment. He stated that he look forward to being discharged so he can spend tome with his family. He continues to deny SI's along with HI's and AVH's. He denies any side effects of his medication. Mental Status Exam - Vital signs Last Vital Signs Temp 98.2 F 08/05/18 08:19 Pulse 60 08/05/18 08:19 Resp 18 08/05/18 08:19 BP 109/60 08/05/18 08:19 Pulse Ox 97 08/05/18 08:19 - Exam Narrative exam: MSE: Appearance: calm, cooperative Behavior: regular eye contact Speech: regular rate and tone Mood: "much better" Affect: congruent to mood Thought Process: linear Thought Content: denies SI/HI's and AVH's Motor Activity: ambulatory Cognition: A/O x3 Insight: appropriate Judgment: appropriate Assessment and Plan Impression: MDD, Severe Type. PTSD. Somatic Symptom DO. 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 Today the patent is calm and cooperative during the assessment. The patient is no threat to self. DDx: R/O Bipolar DO Recommendation/Plan: Rescind 1013 and continue Remeron 15 mg PO HS for depressio/PTSD. Discussed possible sucidality/medication induced amado with the patient reference Remeron. Psy sign off. Dispo: The patient can follow up at the [facility] in [place], [place] for outpatient psy services. Staffed with Dr John Dove.
--- NOTE | 2018-08-05 09:40 | Progress Note ---
Assessment and Plan Assessment and plan: Acute lacunar CVA. CT scan of the head is negative. CT angio of neck just showed 50% stenosis proximally in the right internal carotid artery but normal on the left, CT angiogram head was normal. MRI of the head is negative on diffusion and GRE but shows some periventricular microvascular disease pe ripherally and a thin layer of microvascular disease periventricularly on FLAIR and some mild cerebral atrophy. MRA of the head is normal. PT/OT. Neurology following and recommended repeat brain MRI that was found to be negative. Acute encephalopathy. Resolved. Oropharyngeal dysphagia. Speech therapy perform modified barium swallow that showed no signs of aspiration. Continue dysphagia/mechanical soft diet. Diabetes mellitus type II. Continue Accu-Cheks and sliding scale insulin. Cons istent carbohydrate diet. Restless leg syndrome. Per neurology Common Migraine, intractable. Per Neurology. Hypertension. Continue antihypertensive medications. PTSD. Psychiatry following. Major depressive disorder. Remeron 15 mg PO HS Suicidal ideation. Rescinded 1013 per psychiatry. Substance abuse/cocaine dependence. Disposition. PT evaluation recommends subacute rehabilitation. Await placement. History Interval history: No new issues overnight. Hospitalist Physical - Constitutional Vitals: Temp Pulse Resp BP Pulse Ox 98.2 F 60 18 109/60 97 08/05/18 08:19 08/05/18 08:19 08/05/18 08:19 08/05/18 08:19 08/05/18 08:19 General appearance: Present: no acute distress, cachectic, disheveled - EENT Eyes: Present: PERRL, EOM intact ENT: hearing intact, clear oral mucosa, dentition normal - Neck Neck: Present: supple, normal ROM - Respiratory Respiratory effort: normal Respiratory: bilateral: CTA - Cardiovascular Rhythm: regular Heart Sounds: Present: S1 & S2. Absent: gallop, rub - Extremities Extremities: no ischemia, No edema, Full ROM - Abdominal General gastrointestinal: soft, non-tender, non-distended, normal bowel sounds - Integumentary Integumentary: Present: clear, warm, dry - Neurologic Neurologic: CNII-XII intact, moves all extremities Results - Labs CBC & Chem 7: 07/30/18 11:45 07/30/18 11:45 Labs: Laboratory Last Values WBC 6.4 K/mm3 (4.5-11.0) 07/30/18 11:45 RBC 4.38 M/mm3 (3.65-5.03) 07/30/18 11:45 Hgb 14.2 gm/dl (11.8-15.2) 07/30/18 11:45 Hct 40.0 % (35.5-45.6) 07/30/18 11:45 MCV 91 fl (84-94) 07/30/18 11:45 MCH 33 pg (28-32) H 07/30/18 11:45 MCHC 36 % (32-34) H 07/30/18 11:45 RDW 14.4 % (13.2-15.2) 07/30/18 11:45 Plt Count 266 K/mm3 (140-440) 07/30/18 11:45 Lymph % (Auto) 29.4 % (13.4-35.0) 07/30/18 11:45 [place] % (Auto) 10.2 % (0.0-7.3) H 07/30/18 11:45 Eos % (Auto) 5.8 % (0.0-4.3) H 07/30/18 11:45 Baso % (Auto) 1.2 % (0.0-1.8) 07/30/18 11:45 Lymph # 1.9 K/mm3 (1.2-5.4) 07/30/18 11:45 [place] # 0.7 K/mm3 (0.0-0.8) 07/30/18 11:45 Eos # 0.4 K/mm3 (0.0-0.4) 07/30/18 11:45 Baso # 0.1 K/mm3 (0.0-0.1) 07/30/18 11:45 Seg Neutrophils % 53.4 % (40.0-70.0) 07/30/18 11:45 Seg Neutrophils # 3.4 K/mm3 (1.8-7.7) 07/30/18 11:45 PT 13.1 Sec. (12.2-14.9) 07/30/18 11:45 INR 0.95 (0.87-1.13) 07/30/18 11:45 APTT 42.5 Sec. (24.2-36.6) H 07/30/18 11:45 Sodium 142 mmol/L (137-145) 07/30/18 11:45 Potassium 4.1 mmol/L (3.6-5.0) 07/30/18 11:45 Chloride 101.8 mmol/L (98-107) 07/30/18 11:45 Carbon Dioxide 25 mmol/L (22-30) 07/30/18 11:45 Anion Gap 19 mmol/L 07/30/18 11:45 BUN 17 mg/dL (9-20) 07/30/18 11:45 Creatinine 0.8 mg/dL (0.8-1.5) 07/30/18 11:45 Estimated GFR > 60 ml/min 07/30/18 11:45 BUN/Creatinine Ratio 21 % 07/30/18 11:45 Glucose 136 mg/dL (75-100) H 07/30/18 11:45 POC Glucose 138 (70-105) H 08/04/18 17:38 Lactic Acid 1.60 mmol/L (0.7-2.0) 07/30/18 11:45 Calcium 9.8 mg/dL (8.4-10.2) 07/30/18 11:45 Magnesium 1.80 mg/dL (1.7-2.3) 08/01/18 04:33 Iron 106 ug/dL (49-181) 08/02/18 07:01 TIBC 345 mcg/dL (250-450) 08/02/18 07:01 % Saturation 30.72 % 08/02/18 07:01 Transferrin 269 mg/dl (180-329) 08/02/18 07:01 Ferritin 249.4 ng/mL (13.0-400.0) 08/02/18 07:01 Total Bilirubin < 0.20 mg/dL (0.1-1.2) 07/30/18 11:45 AST 17 units/L (5-40) 07/30/18 11:45 ALT 11 units/L (7-56) 07/30/18 11:45 Alkaline Phosphatase 87 units/L (35-129) 07/30/18 11:45 Ammonia 39.0 umol/L (25-60) 08/01/18 04:33 Troponin T < 0.010 ng/mL (0.00-0.029) 07/30/18 11:45 Total Protein 7.8 g/dL (6.3-8.2) 07/30/18 11:45 Albumin 4.8 g/dL (3.9-5) 07/30/18 11:45 Albumin/Globulin Ratio 1.6 % 07/30/18 11:45 Triglycerides 322 mg/dL (2-149) H 07/31/18 17:28 Cholesterol 200 mg/dL (50-199) H 07/31/18 17:28 LDL Cholesterol Direct 137 mg/dL (50-130) H 07/31/18 17:28 HDL Cholesterol 31 mg/dL (40-59) L 07/31/18 17:28 Cholesterol/HDL Ratio 6.45 % 07/31/18 17:28 Vitamin B1 47 nmol/L (8-30) H 08/01/18 Unknown Vitamin B12 727.7 pg/mL (211-911) 07/31/18 17:28 25-OH Vitamin D Total 20 ng/mL (30-100) L 07/31/18 17:20 Folate > 20 ng/mL (7.3-26.0) 07/31/18 17:28 TSH 2.230 mlU/mL (0.270-4.200) 07/30/18 11:45 Free T4 0.75 ng/dL (0.76-1.46) L 07/31/18 17:20 T3 (GLADYS) 109 ng/dL (76-181) 07/31/18 17:20 Urine Color Yellow (Yellow) 07/30/18 13:19 Urine Turbidity Clear (Clear) 07/30/18 13:19 Urine pH 6.0 (5.0-7.0) 07/30/18 13:19 Ur Specific [place] 1.006 (1.003-1.030) 07/30/18 13:19 Urine Protein <15 mg/dl mg/dL (Negative) 07/30/18 13:19 Urine Glucose (UA) 50 mg/dL (Negative) 07/30/18 13:19 Urine Ketones Neg mg/dL (Negative) 07/30/18 13:19 Urine Blood Neg (Negative) 07/30/18 13:19 Urine Nitrite Neg (Negative) 07/30/18 13:19 Urine Bilirubin Neg (Negative) 07/30/18 13:19 Urine Urobilinogen < 2.0 mg/dL (<2.0) 07/30/18 13:19 Ur Leukocyte Esterase Neg (Negative) 07/30/18 13:19 Urine WBC (Auto) < 1.0 /HPF (0.0-6.0) 07/30/18 13:19 Urine RBC (Auto) < 1.0 /HPF (0.0-6.0) 07/30/18 13:19 U Epithel Cells (Auto) < 1.0 /HPF (0-13.0) 07/30/18 13:19 Urine Opiates Screen Presumptive negative 07/30/18 13:19 Urine Methadone Screen Presumptive negative 07/30/18 13:19 Ur Barbiturates Screen Presumptive negative 07/30/18 13:19 Ur Phencyclidine Scrn Presumptive negative 07/30/18 13:19 Ur Amphetamines Screen Presumptive negative 07/30/18 13:19 U Benzodiazepines Scrn Presumptive positive 07/30/18 13:19 Urine Cocaine Screen Presumptive negative 07/30/18 13:19 U Marijuana (THC) Screen Presumptive negative 07/30/18 13:19 Drugs of Abuse Note Disclamer 07/30/18 13:19 Plasma/Serum Alcohol < 0.01 % (0-0.07) 07/30/18 11:45 Blood Type O POSITIVE 07/30/18 12:11 Antibody Screen Negative 07/30/18 12:11
[2018-08-05] MEDS: ECOTRIN PO SCH (09:49)
[2018-08-05] MEDS: PERCOCET 5/325 PO PRN (10:59)
[2018-08-05] MEDS: NACL 0.9% 1000 ML 1,000 ML IV SCH (10:59)
[2018-08-05] MEDS: VITAMIN B-6 PO SCH (11:00)
[2018-08-05] MEDS: REMERON PO SCH (22:55)
[2018-08-06] MEDS: ECOTRIN PO SCH (09:20)
--- NOTE | 2018-08-06 12:46 | Progress Note ---
Assessment and Plan Assessment and plan: Acute lacunar CVA. CT scan of the head is negative. CT angio of neck just showed 50% stenosis proximally in the right internal carotid artery but normal on the left, CT angiogram head was normal. MRI of the head is negative on diffusion and GRE but shows some periventricular microvascular disease pe ripherally and a thin layer of microvascular disease periventricularly on FLAIR and some mild cerebral atrophy. MRA of the head is normal. PT/OT. Neurology following and recommended repeat brain MRI that was found to be negative. Acute encephalopathy. Resolved. Oropharyngeal dysphagia. Speech therapy perform modified barium swallow that showed no signs of aspiration. Continue dysphagia/mechanical soft diet. Diabetes mellitus type II. Continue Accu-Cheks and sliding scale insulin. Cons istent carbohydrate diet. Restless leg syndrome. Per neurology Common Migraine, intractable. Per Neurology. Hypertension. Continue antihypertensive medications. PTSD. Psychiatry following. Major depressive disorder. Remeron 15 mg PO HS Suicidal ideation. Rescinded 1013 per psychiatry. Substance abuse/cocaine dependence. Disposition. PT evaluation recommends subacute rehabilitation. I discussed with case management. Await placement. History Interval history: Patient states he wants to be discharged, he is in angry mood Hospitalist Physical - Physical exam Narrative exam: GEN: Not in acute distress, lying in bed HEENT: Normocephalic, atraumatic, Neck: supple, No JVD Lungs: Clear to auscultation bilaterally, no wheeze Heart:S1 and S2 regular, no murmurs, rubs or gallop, Abd:soft, non tender, non distended, normal bowel sounds Ext: No edema, no clubbing or cyanosis Neuro: Awake,alert, oriented x 3, No focal signs Psych: angry mood - Constitutional Vitals: Temp Pulse Resp BP Pulse Ox 98.3 F 60 18 119/62 97 08/05/18 16:24 08/05/18 22:00 08/05/18 22:00 08/05/18 16:24 08/05/18 16:24 General appearance: Present: no acute distress Results - Labs CBC & Chem 7: 07/30/18 11:45 07/30/18 11:45 Labs: Laboratory Last Values WBC 6.4 K/mm3 (4.5-11.0) 07/30/18 11:45 RBC 4.38 M/mm3 (3.65-5.03) 07/30/18 11:45 Hgb 14.2 gm/dl (11.8-15.2) 07/30/18 11:45 Hct 40.0 % (35.5-45.6) 07/30/18 11:45 MCV 91 fl (84-94) 07/30/18 11:45 MCH 33 pg (28-32) H 07/30/18 11:45 MCHC 36 % (32-34) H 07/30/18 11:45 RDW 14.4 % (13.2-15.2) 07/30/18 11:45 Plt Count 266 K/mm3 (140-440) 07/30/18 11:45 Lymph % (Auto) 29.4 % (13.4-35.0) 07/30/18 11:45 [place] % (Auto) 10.2 % (0.0-7.3) H 07/30/18 11:45 Eos % (Auto) 5.8 % (0.0-4.3) H 07/30/18 11:45 Baso % (Auto) 1.2 % (0.0-1.8) 07/30/18 11:45 Lymph # 1.9 K/mm3 (1.2-5.4) 07/30/18 11:45 [place] # 0.7 K/mm3 (0.0-0.8) 07/30/18 11:45 Eos # 0.4 K/mm3 (0.0-0.4) 07/30/18 11:45 Baso # 0.1 K/mm3 (0.0-0.1) 07/30/18 11:45 Seg Neutrophils % 53.4 % (40.0-70.0) 07/30/18 11:45 Seg Neutrophils # 3.4 K/mm3 (1.8-7.7) 07/30/18 11:45 PT 13.1 Sec. (12.2-14.9) 07/30/18 11:45 INR 0.95 (0.87-1.13) 07/30/18 11:45 APTT 42.5 Sec. (24.2-36.6) H 07/30/18 11:45 Sodium 142 mmol/L (137-145) 07/30/18 11:45 Potassium 4.1 mmol/L (3.6-5.0) 07/30/18 11:45 Chloride 101.8 mmol/L (98-107) 07/30/18 11:45 Carbon Dioxide 25 mmol/L (22-30) 07/30/18 11:45 Anion Gap 19 mmol/L 07/30/18 11:45 BUN 17 mg/dL (9-20) 07/30/18 11:45 Creatinine 0.8 mg/dL (0.8-1.5) 07/30/18 11:45 Estimated GFR > 60 ml/min 07/30/18 11:45 BUN/Creatinine Ratio 21 % 07/30/18 11:45 Glucose 136 mg/dL (75-100) H 07/30/18 11:45 POC Glucose 224 (70-105) H 08/05/18 16:26 Lactic Acid 1.60 mmol/L (0.7-2.0) 07/30/18 11:45 Calcium 9.8 mg/dL (8.4-10.2) 07/30/18 11:45 Magnesium 1.80 mg/dL (1.7-2.3) 08/01/18 04:33 Iron 106 ug/dL (49-181) 08/02/18 07:01 TIBC 345 mcg/dL (250-450) 08/02/18 07:01 % Saturation 30.72 % 08/02/18 07:01 Transferrin 269 mg/dl (180-329) 08/02/18 07:01 Ferritin 249.4 ng/mL (13.0-400.0) 08/02/18 07:01 Total Bilirubin < 0.20 mg/dL (0.1-1.2) 07/30/18 11:45 AST 17 units/L (5-40) 07/30/18 11:45 ALT 11 units/L (7-56) 07/30/18 11:45 Alkaline Phosphatase 87 units/L (35-129) 07/30/18 11:45 Ammonia 39.0 umol/L (25-60) 08/01/18 04:33 Troponin T < 0.010 ng/mL (0.00-0.029) 07/30/18 11:45 Total Protein 7.8 g/dL (6.3-8.2) 07/30/18 11:45 Albumin 4.8 g/dL (3.9-5) 07/30/18 11:45 Albumin/Globulin Ratio 1.6 % 07/30/18 11:45 Triglycerides 322 mg/dL (2-149) H 07/31/18 17:28 Cholesterol 200 mg/dL (50-199) H 07/31/18 17:28 LDL Cholesterol Direct 137 mg/dL (50-130) H 07/31/18 17:28 HDL Cholesterol 31 mg/dL (40-59) L 07/31/18 17:28 Cholesterol/HDL Ratio 6.45 % 07/31/18 17:28 Vitamin B1 47 nmol/L (8-30) H 08/01/18 Unknown Vitamin B12 727.7 pg/mL (211-911) 07/31/18 17:28 25-OH Vitamin D Total 20 ng/mL (30-100) L 07/31/18 17:20 25-Hydroxy Vitamin D2 . 07/31/18 17:20 25-Hydroxy Vitamin D3 . 07/31/18 17:20 Folate > 20 ng/mL (7.3-26.0) 07/31/18 17:28 TSH 2.230 mlU/mL (0.270-4.200) 07/30/18 11:45 Free T4 0.75 ng/dL (0.76-1.46) L 07/31/18 17:20 T3 (GLADYS) 109 ng/dL (76-181) 07/31/18 17:20 Urine Color Yellow (Yellow) 07/30/18 13:19 Urine Turbidity Clear (Clear) 07/30/18 13:19 Urine pH 6.0 (5.0-7.0) 07/30/18 13:19 Ur Specific [place] 1.006 (1.003-1.030) 07/30/18 13:19 Urine Protein <15 mg/dl mg/dL (Negative) 07/30/18 13:19 Urine Glucose (UA) 50 mg/dL (Negative) 07/30/18 13:19 Urine Ketones Neg mg/dL (Negative) 07/30/18 13:19 Urine Blood Neg (Negative) 07/30/18 13:19 Urine Nitrite Neg (Negative) 07/30/18 13:19 Urine Bilirubin Neg (Negative) 07/30/18 13:19 Urine Urobilinogen < 2.0 mg/dL (<2.0) 07/30/18 13:19 Ur Leukocyte Esterase Neg (Negative) 07/30/18 13:19 Urine WBC (Auto) < 1.0 /HPF (0.0-6.0) 07/30/18 13:19 Urine RBC (Auto) < 1.0 /HPF (0.0-6.0) 07/30/18 13:19 U Epithel Cells (Auto) < 1.0 /HPF (0-13.0) 07/30/18 13:19 Urine Opiates Screen Presumptive negative 07/30/18 13:19 Urine Methadone Screen Presumptive negative 07/30/18 13:19 Ur Barbiturates Screen Presumptive negative 07/30/18 13:19 Ur Phencyclidine Scrn Presumptive negative 07/30/18 13:19 Ur Amphetamines Screen Presumptive negative 07/30/18 13:19 U Benzodiazepines Scrn Presumptive positive 07/30/18 13:19 Urine Cocaine Screen Presumptive negative 07/30/18 13:19 U Marijuana (THC) Screen Presumptive negative 07/30/18 13:19 Drugs of Abuse Note Disclamer 07/30/18 13:19 Plasma/Serum Alcohol < 0.01 % (0-0.07) 07/30/18 11:45 Blood Type O POSITIVE 07/30/18 12:11 Antibody Screen Negative 07/30/18 12:11
[2018-08-06] MEDS: NACL 0.9% 1000 ML 1,000 ML IV SCH ×2 (16:47→22:07)
[2018-08-06] MEDS: LOVENOX SUB-Q SCH ×2 (16:47→22:08)
[2018-08-06] MEDS: VITAMIN B-6 PO SCH (16:47)
[2018-08-06] MEDS: THERAGRAN-M Tab PO SCH (16:48)
[2018-08-06] MEDS: VITAMIN B-1 PO SCH (16:48)
[2018-08-06] MEDS: FOLVITE PO SCH (16:48)
[2018-08-06] MEDS: REMERON PO SCH (22:08)
[2018-08-07 07:22] LABS: Anti-TPO Antibodies SEE SCANNED RESULT; Thyroglobulin Antibodies SEE SCANNED RESULT
[2018-08-07] MEDS: LOVENOX SUB-Q SCH (10:36)
[2018-08-07] MEDS: VITAMIN B-6 PO SCH (10:36)
[2018-08-07] MEDS: ECOTRIN PO SCH (10:36)
[2018-08-07] MEDS: THERAGRAN-M Tab PO SCH (10:36)
[2018-08-07] MEDS: NACL 0.9% 1000 ML 1,000 ML IV SCH ×2 (10:36→16:35)
[2018-08-07] MEDS: FOLVITE PO SCH (10:36)
[2018-08-07] MEDS: VITAMIN B-1 PO SCH (10:36)
[2018-08-07] MEDS: TYLENOL PO PRN (10:45)
--- NOTE | 2018-08-07 11:51 | Discharge Summary ---
Providers - Providers Date of Admission: 07/30/18 14:39 Date of discharge: 08/07/18 Attending physician: ARTURO RILEY 07/30/18 14:37 Consult to Physician [CONS] Routine Comment: Consulting Provider: LAYNE GREENE Physician Instructions: Reason For Exam: cva 07/30/18 14:39 Occupational Therapy Evaluate and Treat [CONS] Routine Comment: Reason For Exam: Neuro deficits Physical Therapy Evaluation and Treat [CONS] Routine Comment: Reason For Exam: Neuro deficits 07/30/18 15:26 Speech Therapy Evaluation and Treat [CONS] Routine Reason For Exam: weak 07/30/18 16:06 psychiatry consult [Consult to Mental Health] [CONS] Routine Reason For Exam: depression/PTSD Place consult to:: psych Notified:: yes Phone number called:: [phone] Was contact made?: Yes If yes, spoke with:: jim Time called:: 17:12 07/31/18 10:00 Speech Therapy Evaluation and Treat [CONS] Routine Reason For Exam: coughing with thin liquid(water) Primary care physician: KENYETTA SUAREZ Hospitalization Condition: Fair Hospital course: Patient is 58 yo with hypertension, diabetes, previos DVT, depression. he was sent in from [facility] because of altered mental status, confusion, decreased respomsiveness. He was found to have left sided weakness, code stroke was called. CT Head was unremarkable. He was admitted, evaluated by Neurology. MRI Brain negative for stroke. Hewas diagnosed with possible cervical radiculopathy as per Neurology. Patient was suicidal so on 1013 hold. This was rescinded and he was discharged to SNF. Total time spent on discharge, 32 mins Disposition: [id number]/TX-[id number] SNF [facility] CERT - Discharge Diagnoses (1) Cervical radiculopathy Status: Acute (2) Diabetes Status: Chronic Qualifiers: Diabetes mellitus type: type 2 (3) HTN (hypertension) Status: Chronic Qualifiers: Hypertension type: essential hypertension Qualified Code(s): I10 - Essential (primary) hypertension (4) PTSD (post-traumatic stress disorder) Status: Chronic (5) Suicidal behavior Status: Acute (6) Depression Status: Acute (7) Encephalopathy Status: Acute Core Measure Documentation - Palliative Care Palliative Care/ Comfort Measures: Not Applicable - Core Measures Any of the following diagnoses?: none Exam - Constitutional Vitals: Temp Pulse Resp BP Pulse Ox 98.3 F 60 18 119/62 97 08/05/18 16:24 08/05/18 22:00 08/06/18 20:58 08/05/18 16:24 08/05/18 16:24 Plan Activity: no restrictions Diet: low fat, low cholesterol, low salt, diabetic Additional Instructions: 1.Follow up with PCP in 1 week. 2.Follow up with Neurology in 1 week. 3.Follow up with [facility] in [place], [place] in 1 week Follow up with: KENYETTA SUAREZ MD [Primary Care Provider] - 7 Days Prescriptions: AtorvaSTATin [Lipitor] 40 mg PO QHS #30 tablet Folic Acid [Folvite] 1 mg PO DAILY #30 tablet Multivitamin Tab W-MINERAL [Multiple Vitamin/Mineral (Theragran M)] 1 each PO QDAY #30 tablet Pyridoxine [Vitamin B-6 50MG TAB] 200 mg PO QDAY 30 Days tablet Thiamine [Vitamin B-1] 100 mg PO QDAY #30 tablet
[2018-08-07 16:52] VITALS: BP 114/81
== END 2018-08-07 18:51 | DRG 73 ==
LOC: ED 11:38 → 4A 14:39
PROVIDERS: ADMIT Internal Medicine; ATTEND Internal Medicine
DX: M54.12 Radiculopathy, cervical region (principal); G93.41 Metabolic encephalopathy; E11.9 Type 2 diabetes mellitus without complications; I10 Essential (primary) hypertension; F43.10 Post-traumatic stress disorder, unspecified; F32.9 Major depressive disorder, single episode, unspecified; F10.20 Alcohol dependence, uncomplicated; F14.20 Cocaine dependence, uncomplicated; F19.10 Other psychoactive substance abuse, uncomplicated; G40.909 Epilepsy, unspecified, not intractable, without status epilepticus; G25.81 Restless legs syndrome; R47.1 Dysarthria and anarthria; R41.3 Other amnesia; G47.52 REM sleep behavior disorder; G43.019 Migraine without aura, intractable, without status migrainosus; R13.12 Dysphagia, oropharyngeal phase; R45.851 Suicidal ideations; F17.200 Nicotine dependence, unspecified, uncomplicated; R20.2 Paresthesia of skin; H53.2 Diplopia; Z91.041 Radiographic dye allergy status; Z86.718 Personal history of other venous thrombosis and embolism; Z79.01 Long term (current) use of anticoagulants; I69.354 Hemiplegia and hemiparesis following cerebral infarction affecting left non-dominant side; Z79.82 Long term (current) use of aspirin; Z79.899 Other long term (current) drug therapy; Z88.0 Allergy status to penicillin
CPT/HCPCS: 36415; 70450; 70496; 70498; 70544; 70551; 74022; 74230; 80053; 80061; 80307; 80320; 81001; 82140; 82306; 82607; 82728; 82747; 82962; 83550; 83735; 84425; 84439; 84443; 84480; 84484; 85025; 85610; 85730; 86800; 86850; 86900; 86901; 87116; 93005; 93010; 93306; 93880; 95819; G0378; A9270-GY; G0480; J1650; J2060; J2310; J3411; J7030; Q9967